=== PATIENT | male | born 1955 | race Caucasian/White ===

== ENCOUNTER 2020-05-11 12:36 | Inpatient (IN) | payer MEDICAID ==
[~2020-05-11] VITALS: Ht 177.8 cm; Wt 76.4 kg
[2020-05-11 12:37] VITALS: BP 127/69
[2020-05-11 13:01] LABS: ABSOLUTE BASOPHILS 0.1 thou/uL (0.0-0.2); ABSOLUTE NEUTROPHILS 14.8 thou/uL (1.6-8.1); BASOPHILS 0.5 %; EOSINOPHILS 0.1 %; HEMATOCRIT 31.2 % (42.0-52.0); HEMOGLOBIN 10.7 gm/dL (14.0-18.0); LYMPHOCYTES 10.8 %; MCH 39.7 pg (26.0-34.0); MCHC 34.2 g/dL (28.0-37.0); MCV 116.3 fL (80.0-100.0); MONOCYTES 10.5 %; MPV 8.8 fl. (7.2-11.1); NUCLEATED RBCS 0 /100WBC; PLATELET COUNT* 158 thou/uL (150-400); POLYS 78.1 %; RBC 2.69 mil/uL (4.50-6.00); RDW-CV 15.2 % (10.5-14.5)
[2020-05-11 13:13] LABS: INR 1.7; PROTIME 17.1 Seconds (9.20-11.50)
[2020-05-11 13:16] LABS: CALCIUM 8.8 mg/dL (8.5-10.1); CREATININE 1.5 mg/dL (0.6-1.3); POTASSIUM 4.4 mmol/L (3.5-5.1)
[2020-05-11 13:21] LABS: ALBUMIN 1.7 g/dL (3.4-5.0); TOTAL BILIRUBIN 13.5 mg/dL (<0.1-1.0); TOTAL PROTEIN 8.2 g/dL (6.4-8.2)
[2020-05-11 13:53] LABS: PLATELET ESTIMATE ADEQUATE
[2020-05-11 13:54] LABS: TARGET CELLS Occasional
[2020-05-11 13:56] LABS: MACROCYTES 1+
[2020-05-11 15:41] LABS: HEMATOCRIT 28.5 % (42.0-52.0); HEMOGLOBIN 9.8 gm/dL (14.0-18.0)
--- NOTE | 2020-05-11 17:23 | EKG ---
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: ADRI : 1955 Requested By: Ronak Henao Order Number: [id number] MD: Julius Jackson Measurements Intervals [place] Rate: 101 P: 1 ME: 127 QRS: 37 QRSD: 98 T: 40 QT: 349 QTc: 453 Interpretive Statements Sinus tachycardia Multiple premature atrial complexes Baseline wander in lead(s) I,III,aVL Compared to ECG 11/30/2014 01:11:20 PACs now present Electronically Signed On 05-11-2020 17:23:03 SPRING MACHINE OPERATOR by Julius Jackson [email or web address] <ELECTRONICALLY SIGNED> By: Julius Jackson MD, FACC 05/11/20 1723 1248 1248 Julius Jackson MD, FACC /EPI
[2020-05-11 18:39] VITALS: BP 102/48
[2020-05-11 20:07] VITALS: BP 100/63
[2020-05-12] VITALS: BP 109/76
[2020-05-12 04:40] VITALS: BP 101/58
[2020-05-12 05:02] LABS: HEMATOCRIT 25.3 % (42.0-52.0); HEMOGLOBIN 8.6 gm/dL (14.0-18.0); MCH 39.3 pg (26.0-34.0); MCHC 33.8 g/dL (28.0-37.0); MCV 116.2 fL (80.0-100.0); MPV 8.8 fl. (7.2-11.1); RBC 2.18 mil/uL (4.50-6.00); RDW-CV 14.7 % (10.5-14.5); WBC 13.5 thou/uL (4.0-11.0)
[2020-05-12 05:13] LABS: INR 1.7; PROTIME 17.7 Seconds (9.20-11.50)
[2020-05-12 05:20] LABS: ALBUMIN 1.4 g/dL (3.4-5.0); CALCIUM 8.1 mg/dL (8.5-10.1); CREATININE 1.2 mg/dL (0.6-1.3); MAGNESIUM 1.9 mg/dL (1.8-2.4); POTASSIUM 3.6 mmol/L (3.5-5.1); TOTAL BILIRUBIN 10.5 mg/dL (<0.1-1.0); TOTAL PROTEIN 6.9 g/dL (6.4-8.2)
[2020-05-12 07:13] LABS: HEPATITIS B SURFACE AG Negative (Negative)
[2020-05-12 07:40] VITALS: BP 115/77
[2020-05-12 12:37] LABS: HEMATOCRIT 26.8 % (42.0-52.0); HEMOGLOBIN 9.1 gm/dL (14.0-18.0)
[2020-05-12 13:44] VITALS: BP 108/69
[2020-05-12 17:04] VITALS: BP 116/77
[2020-05-12 19:45] LABS: HEMATOCRIT 24.5 % (42.0-52.0); HEMOGLOBIN 8.3 gm/dL (14.0-18.0)
[2020-05-12 20:45] VITALS: BP 109/73
[2020-05-13] VITALS (7 sets, daily range): BP systolic 86–106; BP diastolic 50–70
[2020-05-13 04:43] LABS: HEMATOCRIT 23.8 % (42.0-52.0); HEMOGLOBIN 8.3 gm/dL (14.0-18.0); MCHC 34.9 g/dL (28.0-37.0); MCV 114.6 fL (80.0-100.0); MPV 8.7 fl. (7.2-11.1); RBC 2.08 mil/uL (4.50-6.00); RDW-CV 14.7 % (10.5-14.5); WBC 16.1 thou/uL (4.0-11.0)
[2020-05-13 04:55] LABS: INR 1.6; PROTIME 16.9 Seconds (9.20-11.50)
[2020-05-13 05:08] LABS: ALBUMIN 1.5 g/dL (3.4-5.0); CALCIUM 8.2 mg/dL (8.5-10.1); CREATININE 1.1 mg/dL (0.6-1.3); MAGNESIUM 1.8 mg/dL (1.8-2.4); POTASSIUM 3.4 mmol/L (3.5-5.1); TOTAL BILIRUBIN 7.3 mg/dL (<0.1-1.0); TOTAL PROTEIN 6.8 g/dL (6.4-8.2)
[2020-05-13 09:22] LABS: URINE BLOOD NEGATIVE (Negative); URINE CLARITY CLEAR; URINE COLOR YELLOW; URINE GLUCOSE-RANDOM TRACE (Negative); URINE KETONES TRACE (Negative); URINE LEUKOCYTES-REFLEX NEGATIVE (Negative); URINE PROTEIN TRACE (Negative); URINE UROBILINOGEN >= 8.0 E.U./dl (0.2-1.0)
[2020-05-13 09:24] LABS: ICTOTEST (BILI CONFIRMATORY) Positive (Negative); URINE BILIRUBIN 3+ (Negative); URINE NITRITE-REFLEX POSITIVE (Negative)
[2020-05-13 09:31] LABS: SQUAMOUS 0-3 Few /LPF (0-3); URINE WBC-REFLEX 0-5 Rare /HPF (0-5)
[2020-05-13 09:32] LABS: BACTERIA-REFLEX 1-9 Few /HPF (None Seen); CRYSTALS None Seen /LPF (None Seen); HYALINE CASTS 4-10 Moderate /LPF (None Seen); MUCUS None Seen strn/LPF (None Seen); URINE RBC 0-2 Rare /HPF (0-2)
[2020-05-13 14:46] LABS: HEMATOCRIT 25.1 % (42.0-52.0); HEMOGLOBIN 8.5 gm/dL (14.0-18.0)
[2020-05-13 14:55] LABS: BF RBC <1000 /mm3; TOTAL CELL COUNT 145 /mm3
[2020-05-13 15:17] LABS: BF LYMPHOCYTES 63 %; BF POLYS 37 %; BF TISSUE 20 /100 WBC
[2020-05-13 15:19] LABS: CLARITY HAZY
[2020-05-13 15:22] LABS: SOURCE ABDOMINAL; TOTAL VOLUME 5000 ml
[2020-05-14 04:00] VITALS: BP 108/70
[2020-05-14 05:49] LABS: ALBUMIN 1.4 g/dL (3.4-5.0); CALCIUM 8.1 mg/dL (8.5-10.1); CREATININE 1.1 mg/dL (0.6-1.3); TOTAL BILIRUBIN 6.1 mg/dL (<0.1-1.0); TOTAL PROTEIN 6.8 g/dL (6.4-8.2)
[2020-05-14 07:06] LABS: HEMATOCRIT 24.4 % (42.0-52.0); HEMOGLOBIN 8.3 gm/dL (14.0-18.0); MCH 39.5 pg (26.0-34.0); MCV 116.1 fL (80.0-100.0); MPV 8.7 fl. (7.2-11.1); RBC 2.1 mil/uL (4.50-6.00); RDW-CV 15.4 % (10.5-14.5); WBC 14.6 thou/uL (4.0-11.0)
[2020-05-14 07:36] LABS: INR 1.6; PROTIME 16.6 Seconds (9.20-11.50)
[2020-05-14 08:00] VITALS: BP 104/70
[2020-05-14 12:06] LABS: BODY FLUID PROTEIN 0.9 g/dL (())
[2020-05-14 20:05] VITALS: BP 108/78
[2020-05-15] VITALS: BP 93/63
[2020-05-15 08:00] VITALS: BP 98/73
[2020-05-15 13:36] VITALS: BP 125/86
[2020-05-15 17:55] VITALS: BP 115/79
[2020-05-15 19:30] VITALS: BP 119/79
[2020-05-16 04:38] LABS: ABSOLUTE BASOPHILS 0.1 thou/uL (0.0-0.2); ABSOLUTE LYMPHOCYTES 1.8 thou/uL (0.8-5.3); ABSOLUTE MONOCYTES 1.2 thou/uL (0.0-1.2); ABSOLUTE NEUTROPHILS 10.7 thou/uL (1.6-8.1); BASOPHILS 0.4 %; EOSINOPHILS 0.1 %; HEMATOCRIT 25.5 % (42.0-52.0); HEMOGLOBIN 8.7 gm/dL (14.0-18.0); LYMPHOCYTES 12.9 %; MCH 39.4 pg (26.0-34.0); MCHC 34.1 g/dL (28.0-37.0); MCV 115.5 fL (80.0-100.0); MONOCYTES 8.6 %; MPV 8.8 fl. (7.2-11.1); NUCLEATED RBCS 0 /100WBC; PLATELET COUNT* 117 thou/uL (150-400); RBC 2.21 mil/uL (4.50-6.00); RDW-CV 15.8 % (10.5-14.5); WBC 13.7 thou/uL (4.0-11.0)
[2020-05-16 04:53] LABS: INR 1.6; PROTIME 16.1 Seconds (9.20-11.50)
[2020-05-16 05:07] LABS: ALBUMIN 1.5 g/dL (3.4-5.0); CALCIUM 8.1 mg/dL (8.5-10.1); CREATININE 1.2 mg/dL (0.6-1.3); POTASSIUM 3.8 mmol/L (3.5-5.1); TOTAL BILIRUBIN 5.7 mg/dL (<0.1-1.0); TOTAL PROTEIN 6.9 g/dL (6.4-8.2)
[2020-05-16 07:05] LABS: ANISOCYTOSIS 2+; MACROCYTES 2+; PLATELET ESTIMATE DECREASED; POIKILOCYTOSIS 1+
[2020-05-16 08:00] VITALS: BP 110/81
[2020-05-16] MEDS ORDERED: OMEPRAZOLE40 MG PO (08:52)
[2020-05-16] MEDS ORDERED: LASIX 40 MG TAB40 MG PO (08:52)
[2020-05-16] MEDS ORDERED: SPIRONOLACTONE100 M1 PO (08:52)
[2020-05-16] MEDS ORDERED: ORAPRED15 MG/5 ML PO (08:56)
[2020-05-16] MEDS ORDERED: TRAMADOL 50 MG50 MG PO (09:03)
[2020-05-16 14:00] VITALS: BP 112/60
[2020-05-16 17:33] VITALS: BP 110/81
== END 2020-05-16 18:08 | disposition home or self-care (01) | DRG 377 ==
LOC: M.ERS 12:36 → M.TBA-ER 14:16 → M.2W 20:20
PROVIDERS: Family Medicine; Radiology Diagnostic Radiology; ADMIT Internal Medicine; ATTEND Internal Medicine
PROC: 0W9G3ZZ Drainage of Peritoneal Cavity, Percutaneous Approach (ICD-10-PCS; 2020-05-13)
PROC: 06L38CZ Occlusion of Esophageal Vein with Extraluminal Device, Via Natural or Artificial Opening Endoscopic (ICD-10-PCS; 2020-05-14)
PROC: 0W9G3ZZ Drainage of Peritoneal Cavity, Percutaneous Approach (ICD-10-PCS; principal; 2020-05-16)
DX: K92.2 Gastrointestinal hemorrhage, unspecified (principal); E43 Unspecified severe protein-calorie malnutrition; I69.354 Hemiplegia and hemiparesis following cerebral infarction affecting left non-dominant side; K76.6 Portal hypertension; F10.139 Alcohol abuse with withdrawal, unspecified; K70.30 Alcoholic cirrhosis of liver without ascites; F17.210 Nicotine dependence, cigarettes, uncomplicated; R10.9 Unspecified abdominal pain; K70.10 Alcoholic hepatitis without ascites; D50.0 Iron deficiency anemia secondary to blood loss (chronic); D72.829 Elevated white blood cell count, unspecified; K31.89 Other diseases of stomach and duodenum; Z20.828 Contact with and (suspected) exposure to other viral communicable diseases; I85.10 Secondary esophageal varices without bleeding; Z68.24 Body mass index [BMI] 24.0-24.9, adult; Z79.899 Other long term (current) drug therapy

== ENCOUNTER 2020-05-24 17:24 | Inpatient (IN) | payer MEDICAID ==
[2020-05-24] VITALS (8 sets, daily range): BP systolic 90–157; BP diastolic 56–87
[~2020-05-24] VITALS: Ht 177.8 cm; Wt 75.3 kg
[~2020-05-24 17:24] MED LIST: LASIX 40 MG TAB40 MG PO; OMEPRAZOLE40 MG PO; ORAPRED15 MG/5 ML PO; SPIRONOLACTONE100 M1 PO; TRAMADOL 50 MG50 MG PO
[2020-05-24 17:55] LABS: HEMATOCRIT 26.7 % (42.0-52.0); HEMOGLOBIN 8.9 gm/dL (14.0-18.0); MCH 38.7 pg (26.0-34.0); MCHC 33.3 g/dL (28.0-37.0); MCV 116.2 fL (80.0-100.0); MPV 9.2 fl. (7.2-11.1); NUCLEATED RBCS 0 /100WBC; PLATELET COUNT* 218 thou/uL (150-400); RDW-CV 15.3 % (10.5-14.5); WBC 27.7 thou/uL (4.0-11.0)
[2020-05-24 18:03] LABS: CALCIUM 8.6 mg/dL (8.5-10.1); CREATININE 1.9 mg/dL (0.6-1.3); POTASSIUM 5.3 mmol/L (3.5-5.1)
[2020-05-24 18:06] LABS: APTT 27.3 Seconds (25.0-31.3); INR 1.7; PROTIME 17.2 Seconds (9.20-11.50)
[2020-05-24 18:15] LABS: ALBUMIN 1.7 g/dL (3.4-5.0); TOTAL BILIRUBIN 7.1 mg/dL (<0.1-1.0); TOTAL PROTEIN 6.8 g/dL (6.4-8.2)
[2020-05-24 18:30] LABS: ABSOLUTE LYMPHOCYTES 1.1 thou/uL (0.8-5.3); ABSOLUTE MONOCYTES 0.3 thou/uL (0.0-1.2); ABSOLUTE NEUTROPHILS 26.3 thou/uL (1.6-8.1); ANISOCYTOSIS 1+; MACROCYTES 2+; PLATELET ESTIMATE ADEQUATE; POIKILOCYTOSIS 1+; POLYCHROMASIA 1+
[2020-05-24 22:20] LABS: URINE BLOOD NEGATIVE (Negative); URINE CLARITY CLEAR; URINE COLOR DARK YELLOW; URINE GLUCOSE-RANDOM NEGATIVE (Negative); URINE KETONES NEGATIVE (Negative); URINE LEUKOCYTES-REFLEX NEGATIVE (Negative); URINE NITRITE-REFLEX NEGATIVE (Negative); URINE PROTEIN NEGATIVE (Negative); URINE SPECIFIC GRAVITY 1.015 (1.005-1.030)
[2020-05-24 22:21] LABS: HEMATOCRIT 22.8 % (42.0-52.0); HEMOGLOBIN 7.7 gm/dL (14.0-18.0)
[2020-05-24 22:23] LABS: URINE BILIRUBIN 1+ (Negative)
[2020-05-24 22:26] LABS: ICTOTEST (BILI CONFIRMATORY) Negative (Negative)
[2020-05-25] VITALS (121 sets, daily range): BP systolic 57–236; BP diastolic 30–196
[2020-05-25 00:49] LABS: HEMATOCRIT 24.8 % (42.0-52.0); HEMOGLOBIN 8.2 gm/dL (14.0-18.0)
[2020-05-25 05:42] LABS: HEMATOCRIT 23.4 % (42.0-52.0); HEMOGLOBIN 7.8 gm/dL (14.0-18.0); MCH 38.2 pg (26.0-34.0); MCHC 33.3 g/dL (28.0-37.0); MCV 114.8 fL (80.0-100.0); MPV 8.9 fl. (7.2-11.1); RBC 2.04 mil/uL (4.50-6.00); RDW-CV 15.2 % (10.5-14.5); WBC 22.2 thou/uL (4.0-11.0)
[2020-05-25 05:56] LABS: INR 1.6; PROTIME 16.4 Seconds (9.20-11.50)
[2020-05-25 05:59] LABS: ALBUMIN 1.6 g/dL (3.4-5.0); CALCIUM 7.8 mg/dL (8.5-10.1); CREATININE 1.5 mg/dL (0.6-1.3); MAGNESIUM 2.4 mg/dL (1.8-2.4); POTASSIUM 4.4 mmol/L (3.5-5.1); TOTAL BILIRUBIN 5.6 mg/dL (<0.1-1.0); TOTAL PROTEIN 6.1 g/dL (6.4-8.2)
--- NOTE | 2020-05-25 06:18 | NUR ---
ASSESSMENTS CHARTED. PATIENT ON UNIT AT 2145. UNABLE TO DO COMPLETE ADMISSION DUE TO THE PATIENT NOT BEING ORIENTED AND MINIMALLY RESPONSIVE. TACHYCARDIC ALL NIGHT. PATIENT HAD 2 LARGE BOWEL MOVEMENTS. BOTH BLACK AND TARRY. ATIVAN HAD TO BE ADMINISTERED ONCE WHEN THE PATIENT BECAME SUDDENLY ANXIOUS AND WAS ATTEMPTING TO CLIMB OUT OF BED. ATTEMPTS TO REORIENT THE PATIENT UNSUCCESSFUL.
[2020-05-25 08:37] LABS: BE -7.7 mmol/L (-2 to +3); PCO2 30.1 mmHg (35.0-45.0); pH 7.363 (7.340-7.450)
--- NOTE | 2020-05-25 09:40 | EKG ---
[place] [address] ELECTROCARDIOGRAM REPORT Name: JASMINE ADAMSONShey Amezcua Room: [address] IN 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
--- NOTE | 2020-05-25 09:47 | NUR ---
PATIENT'S VITALS BECAME UNSTABLE AT SHIFT CHANGE. HR SUSTAINED ABOVE 150 AND WORK OF BREATHING INCREASED. LARGE BLOODY BOWEL MOVEMENT FOLLOWED BY A SUDDEN DROP IN BLOOD PRESSURE. PATIENT ORDERED TO BE INTUBATED BY DR. VALLE. INTUBATED BY DR. CHIANG AT BEDSIDE. SPOKE WITH DR. BARBOUR ABOUT THE PATIENT'S CONDITION. ORDERS RECIEVED FOR LINE PLACEMENT AND EGD TO BE DONE AT BEDSIDE. MED ORDERS RECIEVED. CONSULTED PULMONARY FOR VENTILATOR MANAGEMENT. ORDERS RECIEVED. PATIENT CURRENTLY HAVING CENTRAL LINE AND ART LINE PLACED BY DR. SAMS. REPORT GIVEN TO BRANT NULL. PATIENT'S EX CALLED AND UPDATE WAS GIVEN OVER THE PHONE.
[2020-05-25 12:45] LABS: PCO2 36.2 mmHg (35.0-45.0)
[2020-05-25 12:48] LABS: PO2 383.8 mmHg (75.0-100.0); pH 7.202 (7.340-7.450)
[2020-05-25 13:29] LABS: NUCLEATED RBCS 0 /100WBC
[2020-05-25 13:38] LABS: HEMATOCRIT 20.9 % (42.0-52.0); INR 1.9; MCH 34.8 pg (26.0-34.0); MCHC 31.2 g/dL (28.0-37.0); MCV 111.5 fL (80.0-100.0); MPV 9.7 fl. (7.2-11.1); PROTIME 19.3 Seconds (9.20-11.50); RBC 1.88 mil/uL (4.50-6.00); RDW-CV 25.3 % (10.5-14.5)
[2020-05-25 13:39] LABS: PLATELET COUNT* 76 thou/uL (150-400)
[2020-05-25 13:41] LABS: HEMOGLOBIN 6.5 gm/dL (14.0-18.0); WBC 43.9 thou/uL (4.0-11.0)
[2020-05-25 13:56] LABS: ALBUMIN 1.1 g/dL (3.4-5.0)
[2020-05-25 14:07] LABS: CALCIUM 7.3 mg/dL (8.5-10.1); CREATININE 2.3 mg/dL (0.6-1.3); MAGNESIUM 2.4 mg/dL (1.8-2.4); TOTAL BILIRUBIN 5.1 mg/dL (<0.1-1.0)
[2020-05-25 14:17] LABS: ABSOLUTE LYMPHOCYTES 0.9 thou/uL (0.8-5.3); ABSOLUTE MONOCYTES 0.4 thou/uL (0.0-1.2); ABSOLUTE NEUTROPHILS 42.6 thou/uL (1.6-8.1); METAMYELOCYTES 1 %
[2020-05-25 14:18] LABS: PLATELET ESTIMATE DECREASED
[2020-05-25 14:19] LABS: BURR CELLS 2+; HYPOCHROMASIA 2+; MACROCYTES 1+
[2020-05-25 14:20] LABS: ANISOCYTOSIS 3+; MICROCYTES Occasional
[2020-05-25 14:22] LABS: POIKILOCYTOSIS 2+
--- NOTE | 2020-05-25 14:26 | CON ---
[address] [address] CONSULTATION Name: JESSICA ADAMSON Room: [address] IN ..#: [id number] Admission: 05/24/20 Attend Phys: Manjit Lehman MD Discharge: Date of : 59 Report #: [id number] THIS REPORT FOR: //name// cc: CHELA - No family physician/PCP FAM - No family physician/PCP ~ DATE OF SERVICE: 05/25/2020 The patient does not have a PCP. Please note at the time of this dictation, the patient was seen and physically examined by myself. REASON FOR CONSULTATION: Acute gastrointestinal bleed, or melanotic stool. HISTORY OF PRESENT ILLNESS: This is a 64-year-old male who was recently seen by us back at the first of this month for alcoholic hepatitis and cirrhosis with ascites. He underwent an EGD at that time which showed grade 3 esophageal varices, which were banded as well as portal hypertensive gastropathy. He was instructed at that time, he needed to quit drinking, which he had been drinking for many years. Upon discharge, he was sent home on Lasix and spironolactone to help with his ascites. He was on a prednisone taper for his alcoholic hepatitis as well as omeprazole at that time. It is unclear if he continues to take his medication or where he was at that time. By his labs, here in the Emergency Room, his alcohol level was 0. It is unclear if he started to re-drink once he got home. It was noted in someone talking to the sister, that she did not think that he had started drinking again. It is unclear how EMS got to his house, if he had called them or not, but he was having black stools and he was very encephalopathic and unable to provide any history. He was very tachycardic and in respiratory distress this a.m. with severe lactic acidosis that was noted. He was immediately then intubated. They dropped an NG tube on him at shift change and noted 900 mL of bright red blood out. Since that time, there has been an additional 300, so he has had a total of 1200 mL of bright red blood on his NG. He has gotten 1 unit of blood and he is also having melanotic stools through a rectal tube. The patient is currently unresponsive at this time. All history has been obtained from previous consultation, 05/08 and also ER documentation. ALLERGIES: No known drug allergies. MEDICATIONS FROM HOME: See MAR. Unclear as to if he was taking anything. PAST MEDICAL HISTORY: History of mini strokes with left-sided weakness, alcohol abuse, hepatitis C, liver cirrhosis. He has esophageal varices, portal hypertensive gastropathy [place] [address] CONSULTATION Name: SNOWJESSICA Seven Room: [address] IN ..#: [id number] Admission: 05/24/20 Attend Phys: Manjit Lehman MD Discharge: Date of : 59 Report #: [id number] PAST SURGICAL HISTORY: Negative. FAMILY HISTORY: Noncontributory. SOCIAL HISTORY: Everyday smoker and alcohol use as well. Unclear if he had quit since his last hospitalization. REVIEW OF SYSTEMS: Twelve-point review of systems is essentially negative except what is mentioned in the HPI. PHYSICAL EXAMINATION: NEUROLOGIC: The patient is sedated, unresponsive and on the ventilator. HEART: Tachycardic. LUNGS: Diminished. ABDOMEN: Rotund and soft. Positive fluid wave with positive bowel sounds in all 4 quadrants with no masses or tenderness evaluated. LABORATORY DATA: Hemoglobin on admission was 8.2. Back on 05/08, he was 10.7. He has dropped down to 7.8 and has gotten 1 unit of blood. White count is 22.2, platelets are 157. His lactic acid was 10.5. PT is 16.4, INR is 1.6. His BUN is 55 and GFR is 47. Total bilirubin is 5.6, alkaline phosphatase was 149, ALT 83, AST is 130. Ammonia on admission was 203, he is down to 120. IMAGING: CT scan shows cirrhosis, large-volume ascites, which is unchanged from his previous CT on 05/11. Abdominal x-ray showed air fluid in the stomach. IMPRESSION: 1. Gastrointestinal bleed, upper. 2. Acute anemia. 3. Melanotic stools. 4. Hepatic encephalopathy. 5. Alcoholic cirrhosis. 6. Alcoholic hepatitis. PLAN: 1. EGD today with Dr. Saxena. 2. Protonix drip. 3. Octreotide drip. 4. Further recommendations to be made after [place] [address] CONSULTATION Name: SNOWJESSICA L Room: [address] IN ..#: [id number] Admission: 05/24/20 Attend Phys: Manjit Lehman MD Discharge: Date of : 59 Report #: [id number] Thank you for allowing us to participate in this patient's care. Please do not hesitate to call with any questions in regard to this consult. <ELECTRONICALLY SIGNED> By: Tamir Saxena DO 05/25/20 1426 1055 [id number] Saxena DO /nt
[2020-05-25 14:46] LABS: APTT 33.3 Seconds (25.0-31.3)
--- NOTE | 2020-05-25 14:54 | NUR ---
ICU rounds: Transfused 2 units, 2 more units ready. Intubated at 7am. EGD today. Para today. Central, Art lines in place. Devi and fecal tubes in place. Pt recently here last week. Per previous CM note, Pt resides at home with brother. Normally independent. No DME. No hx of HH or SNF. CM will attempt to reach brother to discuss POC.
[2020-05-25 15:48] LABS: BF LYMPHOCYTES 14 %; BF MONOCYTES 2 %; BF POLYS 26 %; BF RBC 323 /mm3; BODY FLUID BANDS 14 %; SOURCE PARACENTESIS; TOTAL CELL COUNT 111 /mm3; TOTAL VOLUME 7500 ml
[2020-05-25 15:49] LABS: BF TISSUE 43 /100 WBC; CLARITY SLIGHTLY HAZY
[2020-05-25 17:27] LABS: BE -12.9 mmol/L (-2 to +3); PCO2 21.9 mmHg (35.0-45.0); pH 7.333 (7.340-7.450)
[2020-05-25 17:38] LABS: ABSOLUTE BASOPHILS 0.1 thou/uL (0.0-0.2); ABSOLUTE LYMPHOCYTES 1.7 thou/uL (0.8-5.3); ABSOLUTE MONOCYTES 2.6 thou/uL (0.0-1.2); ABSOLUTE NEUTROPHILS 35.6 thou/uL (1.6-8.1); BASOPHILS 0.2 %; HEMATOCRIT 24.5 % (42.0-52.0); LYMPHOCYTES 4.3 %; MCH 33.5 pg (26.0-34.0); MCHC 32.7 g/dL (28.0-37.0); MONOCYTES 6.4 %; MPV 8.7 fl. (7.2-11.1); NUCLEATED RBCS 0 /100WBC; PLATELET COUNT* 136 thou/uL (150-400); POLYS 89.1 %; RBC 2.39 mil/uL (4.50-6.00); RDW-CV 24.3 % (10.5-14.5)
[2020-05-25 17:39] LABS: PO2 160.4 mmHg (75.0-100.0)
[2020-05-25 17:42] LABS: MCV 102.4 fL (80.0-100.0)
[2020-05-25 17:52] LABS: ALBUMIN 2.1 g/dL (3.4-5.0); CALCIUM 7.8 mg/dL (8.5-10.1); CREATININE 2.5 mg/dL (0.6-1.3); MAGNESIUM 2.3 mg/dL (1.8-2.4); POTASSIUM 5.2 mmol/L (3.5-5.1); TOTAL BILIRUBIN 7.2 mg/dL (<0.1-1.0); TOTAL PROTEIN 5.2 g/dL (6.4-8.2)
[2020-05-25 18:03] LABS: APTT 33.1 Seconds (25.0-31.3); INR 1.7; PROTIME 17.5 Seconds (9.20-11.50)
--- NOTE | 2020-05-25 19:48 | NUR ---
THIS MEDICAL EDITOR ASSUMED CARE OF PT AT 0700 PT WAS INTUBATED AT 0700 WAS ACTIVELY BLEEDING THROUGH BOWEL MOVEMENT AND THROUGH OG ONCE OG WAS PLACED PT HAD OUT [address] Elizabeth FROM GI WAS CONSULTED EGD DONE AT BEDSIDE CLIPPED TWO VARICES CENTRAL LINE AND ARTLINE PLACED AT BEDSIDE STARTED PRESSERS LEVO AND VASO TRANSFUSED 5 UNITS PRBC, TWO UNITS PLASMA AND 1 UNIT CRYO PARACENTESIS DONE AT BED SIDE REMOVED 7500ML/HR SENT FOR TESTING I UNIT OF BLOOD WAS TRANSFUSED DURING EGD PROCEDURE BY CORK MIXER ALL CONSENT OBTAINED AND IN CHART EX HEIDI NOTIFIED AND UPDATED
[2020-05-25 20:11] LABS: HEMATOCRIT 21.3 % (42.0-52.0); HEMOGLOBIN 7.2 gm/dL (14.0-18.0)
[2020-05-26] VITALS (46 sets, daily range): BP systolic 116–151; BP diastolic 49–81
--- NOTE | 2020-05-26 01:45 | NUR ---
ASSUMED CARE OF PT @ 1900; RECEIVED REPORT FROM [place]; REASSESSMENT COMPLETED SEE CHARTING; MONITOR TRACING ST; PT SEDATED ON THE VENT, NO APPARENT PAIN; REPEAT HGB 7.2, DR STRICKLAND CONTACTED THROUGH U CALL MD, RESPONSE STATING WILL FOLLOW UP NO FURTHER ORDERS AT THIS TIME.
[2020-05-26 05:03] LABS: EOSINOPHILS 0.1 %; LYMPHOCYTES 6.3 %; MCHC 34.3 g/dL (28.0-37.0); MCV 99.3 fL (80.0-100.0); MONOCYTES 5.2 %; MPV 8.7 fl. (7.2-11.1); NUCLEATED RBCS 0 /100WBC; PLATELET COUNT* 67 thou/uL (150-400); POLYS 88.4 %; RBC 1.96 mil/uL (4.50-6.00); RDW-CV 24.5 % (10.5-14.5)
[2020-05-26 05:17] LABS: INR 2.1; PROTIME 21.7 Seconds (9.20-11.50)
[2020-05-26 05:22] LABS: ALBUMIN 2.7 g/dL (3.4-5.0); CALCIUM 7.5 mg/dL (8.5-10.1); CREATININE 2.6 mg/dL (0.6-1.3); MAGNESIUM 2.1 mg/dL (1.8-2.4); TOTAL BILIRUBIN 7.3 mg/dL (<0.1-1.0); TOTAL PROTEIN 5.2 g/dL (6.4-8.2)
[2020-05-26 05:24] LABS: POTASSIUM 3.7 mmol/L (3.5-5.1)
[2020-05-26 05:53] LABS: PHOSPHORUS* 5.6 mg/dL (2.5-4.9)
[2020-05-26 06:25] LABS: ABSOLUTE LYMPHOCYTES 1.2 thou/uL (0.8-5.3); ABSOLUTE NEUTROPHILS 17.5 thou/uL (1.6-8.1); WBC 19.8 thou/uL (4.0-11.0)
[2020-05-26 06:26] LABS: HEMOGLOBIN 6.7 gm/dL (14.0-18.0)
[2020-05-26 06:27] LABS: HEMATOCRIT 19.5 % (42.0-52.0)
--- NOTE | 2020-05-26 07:05 | NUR ---
PT PROGRESSING TOWARDS GOALS; TITRATED LEVOPHED DOWN, TITRATED VASOPRESSIN OFF; DECREASED OXYGEN DEMAND MET, PT FIO2 TITRATED TO 40%; PT MONITOR NOW TRACING SR; PT REPOSITION, ORAL CARE AMD VENT EVERY 2HOURS; AM LABS COMPLETED; ORDERS RECEIVED FROM DR SAUCEDO TO TRANSFUSE 1 UNIT OF RBC AND 2 UNITS OF FRESH FROZEN PLASMA; REPORT GIVEN TO SANDEEP; WILL CONTINUE TO MONITOR.
--- NOTE | 2020-05-26 07:34 | NUR ---
DR TORI COOPER OF [facility], [place] TO TRANSFUSE 1 UNIT OF PRBC, AND 2 UNITS OF FFP, NO FURTHER ORDERS RECEIVED.
[2020-05-26 08:26] LABS: BE 3.3 mmol/L (-2 to +3); PCO2 30.2 mmHg (35.0-45.0); pH 7.549 (7.340-7.450)
--- NOTE | 2020-05-26 12:25 | NUR ---
PT REMAINS INTUBATED PER ORDERED SETTINGS.SEDATED WITH VERSED AND FENTANYL.ON LEVO FOR BP SUPPORT-ABLE TO TITRATE DOWN. 1 UNIT FFP GIVEN-NO REACTIONS NOTED.1 UNIT BLOOD STARTED.EGD COMPLETED AT BEDSIDE.REPORT GIVEN TO BRANT RAMIRES.
--- NOTE | 2020-05-26 14:36 | NUR ---
ICU rounds: Remains on vent, sedated. Tube feeds. GI following.
[2020-05-26 15:08] LABS: BODY FLUID PROTEIN 0.5 g/dL (())
[2020-05-26 16:30] LABS: HEMATOCRIT 21.1 % (42.0-52.0); HEMOGLOBIN 7.2 gm/dL (14.0-18.0); MCH 33.6 pg (26.0-34.0); MCHC 34.2 g/dL (28.0-37.0); MCV 98.1 fL (80.0-100.0); MPV 8.3 fl. (7.2-11.1); NUCLEATED RBCS 0 /100WBC; PLATELET COUNT* 63 thou/uL (150-400); RBC 2.15 mil/uL (4.50-6.00); RDW-CV 22.4 % (10.5-14.5); WBC 17.4 thou/uL (4.0-11.0)
[2020-05-26 16:41] LABS: APTT 36.2 Seconds (25.0-31.3); INR 1.9; PROTIME 19.6 Seconds (9.20-11.50)
[2020-05-26 16:58] LABS: ABSOLUTE MONOCYTES 0.2 thou/uL (0.0-1.2); ABSOLUTE NEUTROPHILS 16.2 thou/uL (1.6-8.1); ALBUMIN 2.9 g/dL (3.4-5.0); ANISOCYTOSIS 2+; CALCIUM 7.6 mg/dL (8.5-10.1); CREATININE 2.3 mg/dL (0.6-1.3); MAGNESIUM 2.2 mg/dL (1.8-2.4); PLATELET ESTIMATE DECREASED; POTASSIUM 3.6 mmol/L (3.5-5.1); TOTAL BILIRUBIN 6.5 mg/dL (<0.1-1.0); TOTAL PROTEIN 5.4 g/dL (6.4-8.2)
[2020-05-26 17:32] LABS: BE 1.8 mmol/L (-2 to +3); PCO2 33.5 mmHg (35.0-45.0); pH 7.492 (7.340-7.450)
[2020-05-26 17:36] LABS: PO2 155.5 mmHg (75.0-100.0)
--- NOTE | 2020-05-26 17:40 | NUR ---
PT HAD BEDSIDE EGD TO TODAY AND OG TUBE PLACED. START TUBE FEEDING THIS EVENING AND CONTIUNUE FREQUENT TURNS AND ORAL CARE. BLOOD TRANSFUSED THIS AM. WILL CONTNINUE TO ASSESS.
[2020-05-27] VITALS (51 sets, daily range): BP systolic 92–124; BP diastolic 49–116
[2020-05-27 04:15] LABS: ABSOLUTE LYMPHOCYTES 0.8 thou/uL (0.8-5.3); ABSOLUTE MONOCYTES 0.5 thou/uL (0.0-1.2); ABSOLUTE NEUTROPHILS 11.4 thou/uL (1.6-8.1); BASOPHILS 0.1 %; HEMATOCRIT 20.4 % (42.0-52.0); LYMPHOCYTES 6.4 %; MCH 33.7 pg (26.0-34.0); MCHC 34.3 g/dL (28.0-37.0); MCV 98.1 fL (80.0-100.0); MONOCYTES 3.8 %; MPV 8.8 fl. (7.2-11.1); NUCLEATED RBCS 0 /100WBC; PLATELET COUNT* 53 thou/uL (150-400); POLYS 89.7 %; RBC 2.08 mil/uL (4.50-6.00); WBC 12.8 thou/uL (4.0-11.0)
[2020-05-27 04:45] LABS: PROTIME 20.3 Seconds (9.20-11.50)
[2020-05-27 05:01] LABS: ALBUMIN 2.6 g/dL (3.4-5.0); CREATININE 2.1 mg/dL (0.6-1.3); MAGNESIUM 2.4 mg/dL (1.8-2.4); POTASSIUM 3.3 mmol/L (3.5-5.1); TOTAL BILIRUBIN 5.9 mg/dL (<0.1-1.0); TOTAL PROTEIN 5.2 g/dL (6.4-8.2)
--- NOTE | 2020-05-27 06:12 | NUR ---
LEVOPHED TITRATED OFF. FIO2 DOWN TO 35%. LIQUID STOOL PER FECAL TUBE, ABOUT 20-30ML. PATIENT NOT TOLERATING TUBE FEEDS, RESIDUALS 270-300CC. HELD FOR 4 HOURS THEN RESTARTED AT 20ML/HR WITHOUT GIVING THE RESIDUALS BACK. OTHERWISE UNEVENTFUL NIGHT. AFEBRILE, UOP 900CC. Q2 TURNS FOR SKIN INTEGRITY.
[2020-05-27 08:10] LABS: BE 2.2 mmol/L (-2 to +3); PCO2 42.8 mmHg (35.0-45.0); PO2 97.7 mmHg (75.0-100.0); pH 7.417 (7.340-7.450)
[2020-05-27 11:03] LABS: HEMATOCRIT 20.2 % (42.0-52.0)
--- NOTE | 2020-05-27 15:20 | NUR ---
ICU rounds: Weaning trial planned for today. Off levo. Hbg at 7
[2020-05-27 15:30] LABS: ABSOLUTE LYMPHOCYTES 0.7 thou/uL (0.8-5.3); ABSOLUTE MONOCYTES 0.3 thou/uL (0.0-1.2); ABSOLUTE NEUTROPHILS 8.8 thou/uL (1.6-8.1); BASOPHILS 0.3 %; HEMATOCRIT 20.6 % (42.0-52.0); HEMOGLOBIN 7.1 gm/dL (14.0-18.0); LYMPHOCYTES 7.1 %; MCH 34.3 pg (26.0-34.0); MCHC 34.7 g/dL (28.0-37.0); MCV 98.8 fL (80.0-100.0); MONOCYTES 3.5 %; MPV 8.4 fl. (7.2-11.1); NUCLEATED RBCS 0 /100WBC; POLYS 89.1 %; RBC 2.08 mil/uL (4.50-6.00); RDW-CV 22.9 % (10.5-14.5); WBC 9.8 thou/uL (4.0-11.0)
[2020-05-27 15:35] LABS: PLATELET COUNT* 46 thou/uL (150-400)
[2020-05-27 15:40] LABS: ALBUMIN 2.4 g/dL (3.4-5.0); CALCIUM 7.8 mg/dL (8.5-10.1); CREATININE 1.8 mg/dL (0.6-1.3); MAGNESIUM 2.3 mg/dL (1.8-2.4); POTASSIUM 3.7 mmol/L (3.5-5.1); TOTAL BILIRUBIN 5.3 mg/dL (<0.1-1.0); TOTAL PROTEIN 4.9 g/dL (6.4-8.2)
--- NOTE | 2020-05-27 16:27 | NUR ---
REPORT GIVEN TO BRANT CAPPS AT [facility]. PT AND EDUCATED. PT LEFT THE UNIT AT 1615. OBTURATOR SENT WITH EMT PERSONNEL. PT BELONGINGS (CLOTHES, CELLPHONE AND MANAGER FLOAT) SENT HOME WITH , SENIA.
--- NOTE | 2020-05-27 18:30 | NUR ---
ALL SEDATION DRIP TURNED OFF THIS AM. WEANING TRIAL INITIATED BUT PT NOT AWAKE ENOUGH TO FOLLOW COMMANDS, MOVES ALL THE EXTREMITIES BUT UNPURPOSEFUL. TRIAL TOMORROW. VSS. BP MAINTAINED WITHOUT PRESSORS. TUBE FEEDS RESIDUAL >200 MLS Q4H, RESTARTED FEEDING AT 20 MLS/HR AT 1800. SONSONALI IN THE UNIT FOR FEW HOURS TODAY. POTASSIUM REPLACED PER PROTOCOL. Q2 TURNS AND ORAL CARE PROVIDED.
[2020-05-28] VITALS (51 sets, daily range): BP systolic 15–127; BP diastolic 55–76
[2020-05-28 05:23] LABS: HEMATOCRIT 22.7 % (42.0-52.0); HEMOGLOBIN 7.7 gm/dL (14.0-18.0); MCHC 33.8 g/dL (28.0-37.0); MCV 100.5 fL (80.0-100.0); MPV 8.6 fl. (7.2-11.1); RBC 2.26 mil/uL (4.50-6.00); WBC 7.9 thou/uL (4.0-11.0)
[2020-05-28 05:53] LABS: INR 1.8; PROTIME 18.8 Seconds (9.20-11.50)
[2020-05-28 05:57] LABS: ALBUMIN 2.4 g/dL (3.4-5.0); CALCIUM 8.2 mg/dL (8.5-10.1); CREATININE 1.7 mg/dL (0.6-1.3); POTASSIUM 3.7 mmol/L (3.5-5.1); TOTAL BILIRUBIN 5.7 mg/dL (<0.1-1.0); TOTAL PROTEIN 5.2 g/dL (6.4-8.2)
[2020-05-28 15:02] LABS: BE 0 mmol/L (-2 to +3); PCO2 41.5 mmHg (35.0-45.0); PO2 106.4 mmHg (75.0-100.0); pH 7.396 (7.340-7.450)
--- NOTE | 2020-05-28 17:50 | NUR ---
WEANING TRIAL DONE THIS AFTERNOON, PASSED THE TRIAL BUT NOT AWAKE ENOUGH TO FOLLOW COMMANDS. ONLY OPENING EYES AT TIMES. NO PLANS FOR EXTUBATION TODAY. PROTONIX DRIP CONTD. FECAL TUBE DC'd. VSS. TUBE FEEDINGS CONTD AT LOW RATE BECAUSE OF HIGH RESIDAULS. Q2 TURNS AND ORAL CARE GIVEN.
[2020-05-29] VITALS (17 sets, daily range): BP systolic 73–165; BP diastolic 49–80
--- NOTE | 2020-05-29 05:52 | NUR ---
PATIENT ON 0.8MCG/KG/HR THROUGH THE NIGHT. RESTLESS INTERMITTENTLY, BUT COMFORTABLE FOR THE MOST PART. OPENS EYES, DOES NOT FOLLOW COMMANDS. DID TOLERATE TUBE FEED, ON HOLD SINCE AROUND 0400 FOR POSSIBLE TRIAL. BMX1, MODERATE, LOOSE AND DARK RED/MAROON. Q2 TURNS FOR SKIN INTEGRITY. WILL CONTINUE MONITORING FOR THE REMAINDER OF SHIFT.
[2020-05-29 08:35] LABS: CALCIUM 8.1 mg/dL (8.5-10.1); CREATININE 1.7 mg/dL (0.6-1.3); POTASSIUM 3.2 mmol/L (3.5-5.1)
[2020-05-29 10:31] LABS: HEMATOCRIT 24.7 % (42.0-52.0); HEMOGLOBIN 8.2 gm/dL (14.0-18.0); MCH 33.8 pg (26.0-34.0); MCHC 33.1 g/dL (28.0-37.0); MPV 9.2 fl. (7.2-11.1); RBC 2.42 mil/uL (4.50-6.00); RDW-CV 22.8 % (10.5-14.5); WBC 8.3 thou/uL (4.0-11.0)
[2020-05-29 12:40] LABS: BE 0.9 mmol/L (-2 to +3); PCO2 39.4 mmHg (35.0-45.0); pH 7.426 (7.340-7.450)
[2020-05-29 12:41] LABS: PO2 133.8 mmHg (75.0-100.0)
--- NOTE | 2020-05-29 14:00 | NUR ---
PT PASSED WEANING TRIAL THIS AM, PT EXTUBATED HIMSELF WHILE WAITING ON THE CALL BACK FROM PULMONOLOGY. O2 SATS MAINTAINED AT NC 2L/MIN. VSS.
--- NOTE | 2020-05-29 23:05 | NUR ---
PATIENT PULLED OU ART LINE. PRESSURE APPLIED PER PROTOCOL AND THEN THE SITE WAS DRESSED
[2020-05-30] VITALS (20 sets, daily range): BP systolic 79–136; BP diastolic 60–87
--- NOTE | 2020-05-30 06:28 | NUR ---
ASSUMED PATIENT CARE AT 1900. PATIENT AGITATED AND HAS SOME VISUAL HALLUCINATIONS, STATING THAT THERE ARE "ANTS CRAWLING UP THE WALL" NO COMPLAINTS OF PAIN OR DISCOMFORT NOTED. PARACENTISIS SITE STILL WEEPING. PULIDO PATENT. FECAL TUBE PLACED FOR BOWEL MANAGEMENT. ART LINE D/C'D BY PATIENT. RN ASSESSMENTS COMPLTED DOCUMENTED.
[2020-05-30 09:52] LABS: HEMATOCRIT 27.1 % (42.0-52.0); HEMOGLOBIN 9.1 gm/dL (14.0-18.0); MCH 34.1 pg (26.0-34.0); MCHC 33.5 g/dL (28.0-37.0); MCV 101.7 fL (80.0-100.0); MPV 9.2 fl. (7.2-11.1); NUCLEATED RBCS 0 /100WBC; PLATELET COUNT* 57 thou/uL (150-400); RBC 2.67 mil/uL (4.50-6.00); RDW-CV 22.8 % (10.5-14.5); WBC 16.7 thou/uL (4.0-11.0)
[2020-05-30 10:05] LABS: ALBUMIN 2.2 g/dL (3.4-5.0); CALCIUM 8.8 mg/dL (8.5-10.1); CREATININE 1.5 mg/dL (0.6-1.3); POTASSIUM 3.8 mmol/L (3.5-5.1); TOTAL BILIRUBIN 8.5 mg/dL (<0.1-1.0); TOTAL PROTEIN 5.2 g/dL (6.4-8.2)
[2020-05-30 10:06] LABS: INR 1.8; PROTIME 18.8 Seconds (9.20-11.50)
[2020-05-30 10:22] LABS: ABSOLUTE LYMPHOCYTES 0.3 thou/uL (0.8-5.3); ABSOLUTE MONOCYTES 0.7 thou/uL (0.0-1.2); ABSOLUTE NEUTROPHILS 15.7 thou/uL (1.6-8.1); ANISOCYTOSIS 1+; PLATELET ESTIMATE DECREASED
[2020-05-30 10:23] LABS: HYPOCHROMASIA 1+; OVALOCYTES Occasional; POIKILOCYTOSIS 1+
--- NOTE | 2020-05-30 14:06 | NUR ---
WOUND NURSE: PATIENT SEEN TO ADDRESS LESION ON POSTERIOR THORACIC SPINE. PRESENTS A SMALL CIRCIFORM LESION CONTAINING COPIOUS AMOUNT OF SEBUM. EXPRESSED APPROX 30 TO 45 CCS OF OLD GRAYISH OILY MATERIAL FROM THE LESION. CLEANSED WITH WOUND CLEANSER AND GAUZE AND NORMAL SALINE.
--- NOTE | 2020-05-30 14:30 | NUR ---
PT TRANSFERRED TO ROOM 230. WILL CONTINUE CARE.
--- NOTE | 2020-05-30 15:09 | NUR ---
ICU rounds: Pt tele status, moving to 230
--- NOTE | 2020-05-30 16:51 | NUR ---
PT PASSED BEDSIDE SWALLOW EVALUATION AND WOUND CARE DRESSED CYST ON RIGHT BACK SHOULDER TODAY. WILL CONTINUE TO ASSESS.
--- NOTE | 2020-05-30 20:00 | NUR ---
RECEIVED REPORT AND ASSUMED CARE OF PT, ASSESSMENT COMPLETED. PT VERY JAUNDICE IN COLOR. ABD LG, DISTENDED WITH ASCITIES, PUNCTURE AREA WEEPING CL YELLOW FLUID. DRSG NOTED TO LT SHOULDER AREA. FECAL SYSTEM IN PLACE WITH LG AMT OF LIQ STOOL. PT DRINKING WATER WITHOUT DIFFICULTY. TELEMETRY ON SHOWING SR. WILL CONT TO MONITOR AND ASSIST NEEDED.
[2020-05-31] VITALS: BP 125/84
[2020-05-31 04:00] VITALS: BP 115/79
[2020-05-31 05:25] LABS: ABSOLUTE LYMPHOCYTES 0.7 thou/uL (0.8-5.3); ABSOLUTE MONOCYTES 0.7 thou/uL (0.0-1.2); ABSOLUTE NEUTROPHILS 11.1 thou/uL (1.6-8.1); BASOPHILS 0.3 %; HEMATOCRIT 24.6 % (42.0-52.0); HEMOGLOBIN 8.2 gm/dL (14.0-18.0); LYMPHOCYTES 5.8 %; MCH 33.6 pg (26.0-34.0); MCHC 33.3 g/dL (28.0-37.0); MCV 100.9 fL (80.0-100.0); MONOCYTES 5.3 %; MPV 9.3 fl. (7.2-11.1); NUCLEATED RBCS 0 /100WBC; POLYS 88.6 %; RBC 2.43 mil/uL (4.50-6.00); RDW-CV 23.2 % (10.5-14.5); WBC 12.5 thou/uL (4.0-11.0)
[2020-05-31 05:34] LABS: PLATELET COUNT* 43 thou/uL (150-400)
[2020-05-31 05:36] LABS: ALBUMIN 2.5 g/dL (3.4-5.0); CALCIUM 8.9 mg/dL (8.5-10.1); CREATININE 1.4 mg/dL (0.6-1.3); POTASSIUM 3.3 mmol/L (3.5-5.1); TOTAL PROTEIN 5.3 g/dL (6.4-8.2)
--- NOTE | 2020-05-31 05:42 | NUR ---
AWAKE MOST OF NIGHT. REPOSITIONED Q 2HR FROM SIDE TO SIDE BUT PT RETURNS TO BACK. FECAL TUBE HAS CAME OUT AND REINSERTED, CONT TO LEAK AROUND IT. ABD WEEPING ASCITES FLUID. PT ASSESSMENT UNCHANGED. TELEMETRY CONT TO SHOW ST. HS GOALS OF REST AND SAFETY ONLY PARTICALLY ACHIEVED. HOURLY ROUNDING OBSERVED.
[2020-05-31 09:09] VITALS: BP 134/68
[2020-05-31 11:20] VITALS: BP 122/84
[2020-05-31 13:32] LABS: CALCIUM 9.5 mg/dL (8.5-10.1); CREATININE 1.5 mg/dL (0.6-1.3)
[2020-05-31 16:45] VITALS: BP 150/91
--- NOTE | 2020-05-31 19:37 | NUR ---
CARES PROVIDED FROM 0700 TO 1900. PT REMAINS ALERT TO PERSON, PLACE AND FAMILY. FOLLOWS DIRECTIONS. PT REMAINS HEAVY ASSISTANCE WITH CARES. APPETITE IS FAIR. K LEVEL THIS AFTERNOON 3.0. REPLACEMENT PER PROTOCOL. UTILIZED IV ROUTE TO ADMINISTER. AT TIME OF THIS NOTE PT IS DUE FOR 2 MORE BAGS OF K. RECTAL TUBE REMAINS IN PLACE. PT PASSING LARGE AMOUNT OF LIQUID STOOL. AT TIME OF THIS NOTE PT IS RESTING QUIETLY
[2020-05-31 20:00] VITALS: BP 125/78
[2020-06-01] VITALS: BP 135/83
[2020-06-01 03:57] VITALS: BP 128/80
--- NOTE | 2020-06-01 05:07 | NUR ---
ASSUMED PT CARE AT APPROX 1930. PT IS AWAKE, ORIENTED TO SELF AND PLACE. PT IS NOT IN DISTRESS. PT IS TRACING SR/ST ON THE SHELL TRIM OPERATOR. PT DENIES PAIN. FECAL TUBE IS INTACT AND IS DRAINING- LIQUID LIGHT BROWN BM. PULIDO CATHETER IN PLACE AND IS DRAINING WELL. POSITION CHANGES DONE, AND PT IS KEPT CLEAN AND DRY FECAL TUBE IS LEAKING A LITTLE. NO ACUTE CHANGES THIS SHIFT. CALL LIGHT WITHIN REACH. HOIURLY ROUNDING DONE FOR PT SAFETY. HIGH FALL PRECAUTIONS IN PLACE.
[2020-06-01 06:05] LABS: HEMATOCRIT 25.7 % (42.0-52.0); HEMOGLOBIN 8.6 gm/dL (14.0-18.0); MCHC 33.6 g/dL (28.0-37.0); MCV 101.3 fL (80.0-100.0); MPV 9.2 fl. (7.2-11.1); RBC 2.54 mil/uL (4.50-6.00); RDW-CV 22.2 % (10.5-14.5); WBC 12.5 thou/uL (4.0-11.0)
[2020-06-01 06:18] LABS: INR 1.9; PROTIME 19.5 Seconds (9.20-11.50)
[2020-06-01 06:21] LABS: ALBUMIN 2.1 g/dL (3.4-5.0); CALCIUM 9.3 mg/dL (8.5-10.1); CREATININE 1.2 mg/dL (0.6-1.3); POTASSIUM 3.2 mmol/L (3.5-5.1); TOTAL BILIRUBIN 8.3 mg/dL (<0.1-1.0)
[2020-06-01 07:30] VITALS: BP 131/81
[2020-06-01 11:00] VITALS: BP 113/75
--- NOTE | 2020-06-01 13:53 | NUR ---
CM INFORMED DURING PRIME ROUNDING OF THE PLAN OF CARE FOR THE PT. PLAN FOR PT TO TO HAVE PT/OT EVALS. ARU CONSULT PENDING A PT HAS MEDICAID ONLY INSURANCE, SO PT ONLY ABLE TO HAVE HH WITH NURSING ONLY. CM WILL REMAIN AVAILABLE TO ASSIST AND FOLLOW NEEDED.
[2020-06-01 16:30] VITALS: BP 113/78
--- NOTE | 2020-06-01 17:40 | NUR ---
A&O X 1 (PERSON).LUNGS CEAR, HEART TONES REGULAR, +BS X 4 QUADS. ABD SOFT BUT ROUND AND DISTENDED. PT IS JAUNDICE. PULIDO CATH DC'D, BRIEF PUT ON PT IS INCONTINENT BOWEL AND BLADDER. CENTRAL LINE DC'D AND PRESSURE DRESSING APPLIED. RECTAL TUBE DC'D. NEW ORDER FOR ACTIVITY TOLERATED. PHYSICAL THERAPY CAME AND SAT PT ON SIDE OF BED AND HE TOLERATED WELL. ORDER PUT IN FOR REHAB CONSULT. REPLACED POTASSIUM TODAY AND WILL HAVE LAB DRAW K+ LEVEL AT 1930. COCCYX PRESSURE SORE NOTED MEASURES 1.5CM X 1 CM, PICTURE TAKEN AND PUT ON CHART. COCCYX AREA IS PINK, BOARDER FOAM DRESSING APPLIED. BRUISING NOTED TO ARMS AND CHEST. A.B.D. PLACED ON PARACENTESIS SITE WHICH IS STILL WEEPING. EYE'S VERY JAUNDICE. ALL IV FLUIDS DC'D. CALL LIGHT WITHIN REACH. WILL CONTINUE TO MONITOR.
--- NOTE | 2020-06-01 18:32 | NUR ---
LEFT BACK CYST REDRESSED. MEASURES 1.5CM X 1 CM TUNNELS. 1200 IS .5CM, 1500 IS 4 CM, 1800 IS 4CM, 2100 IS 2 CM. PICTURE TAKEN AND PUT ON CHART. CLEANSED WITH WOUND CLEANSER. VERY FOWL SMELLING SECRETIONS NOTED.
[2020-06-01 20:00] VITALS: BP 103/69
[2020-06-02] VITALS: BP 102/71
[2020-06-02 04:00] VITALS: BP 98/68
[2020-06-02 04:27] LABS: HEMATOCRIT 29.7 % (42.0-52.0); HEMOGLOBIN 9.9 gm/dL (14.0-18.0); MCHC 33.4 g/dL (28.0-37.0); MCV 101.8 fL (80.0-100.0); MPV 9.9 fl. (7.2-11.1); RBC 2.92 mil/uL (4.50-6.00); RDW-CV 22.3 % (10.5-14.5)
[2020-06-02 04:45] LABS: INR 1.7; PROTIME 17.7 Seconds (9.20-11.50)
[2020-06-02 04:58] LABS: ALBUMIN 2.2 g/dL (3.4-5.0); CALCIUM 9.8 mg/dL (8.5-10.1); CREATININE 1.5 mg/dL (0.6-1.3); MAGNESIUM 2.1 mg/dL (1.8-2.4); POTASSIUM 3.7 mmol/L (3.5-5.1); TOTAL BILIRUBIN 10.2 mg/dL (<0.1-1.0)
[2020-06-02 04:59] LABS: TOTAL PROTEIN 5.4 g/dL (6.4-8.2)
--- NOTE | 2020-06-02 06:13 | NUR ---
ASSUMED PT CARE AT APPROX 1930. PT IS AWAKE, ORIENTED TO SELF AND PLACE AND YEAR. PT IS FORGETFUL AND HAS PERIODS OF CONFUSION. PT IS NOT IN DISTRESS. PT IS INCONTINENT OF BOWEL AND BLADDER. PT IS REPOSITIONED AND IS KEPT DRY AND CLEAN. NO ACUTE CHANGES THIS SHIFT. CALL LIGHT WITHIN REACH. HOURLY ROUNDING DONE FOR PT SAFETY. HIGH FALL PRECAUTIONS IN PLACE.
[2020-06-02 08:08] VITALS: BP 97/69
--- NOTE | 2020-06-02 10:21 | NUR ---
ASSUMED CARE OF PT THIS AM AROUND 07- CASTING HOUSE WORKER IN PLACE ORDERED, TRACING SR- UPON ASSESSMENT PT NOTED TO BE RESTING IN BED- PT A&O X2 WITH NOTED FORGETFULLNESS/CONFUSSION- PT NOTED TO BE IMPULSIVE AT TIMES, TRYING TO CLIMB OUT OF BED- INCONT OF B/B- Q2 HOUR TURNS IN PLACE INDICATED- LCTA/DIMINISHED IN BASES- VSS, O2 SAT 93% ON RA- ABD FIRM/ROUND/DISTENDED, BS ACTIVE- ABD ASCITES NOTED- JAUNDICE NOTED-PT NOTED THIS AM- DRAINGE NOTED FROM RIGHT PARACENTHESIS- NO IV ACCESS NOTED, PROVIDER AWARE-COCCYX WOUND NOTED WITH DRESSING C/D/I- SET UP ASSISTANCE REQUIRED WITH MEALS, FAIR PO INTAKE NOTED THIS AM- CALL LIGHT AND PERSONAL BELONGINGS WITH IN REACH- BED ALARM IN PLACE AND WORKING FOR PT SAFETY- HOURLY ROUNDS IN PLACE R/T SAFETY/NEEDS- ALL NEEDS MET AT THIS TIME-WCTM
[2020-06-02 20:00] VITALS: BP 113/78
[2020-06-03] VITALS: BP 118/68
--- NOTE | 2020-06-03 07:12 | NUR ---
ASSUMED PT CARE AT APPROX 1930. PT IS AWAKE, ORIENTED TO SELF, MOSTLY CONFUSED. PT IS IMPULSIVE AND IS WANTING TO GET OUT OF BED AND GO HOME TO HIS DOG. PT IS NOT IN DISTRESS, NO DESATURATIONS NOTED. PT IS INCONTINENT OF BOWEL AND BLADDER, MULTIPLE BED CHANGES DONE THROUGHOUT THIS SHIFT. PT IS REPOSITIONED AND IS KEPT CLEAN AND DRY. BENADRYL GIVEN TO HELP HIM CALM DOWN. NO OACUTE CHANGES THIS SHIFT. CALL LIGHT WITHIN REACH. HIGH FALL PRECAUTIONS IN PLACE. PT IS CLOSELY MONITORED.
[2020-06-03 08:00] VITALS: BP 103/74; BP 107/74
--- NOTE | 2020-06-03 08:00 | NUR ---
AM ASSESSMENT COMPLETE, DEFER TO COMPUTER CHARTING. ALERT ORIENTED TO SELF ONLY, SITUATION AT TIMES. JUANDICE IN COLOR - WEAKNESS NOTED. ABD DISTENDED WITH POSITIVE BOWEL SOUNDS - INCONTINENT OF URINE, CLAIRE CARE GIVEN. HOB ELEVATED. BED ALARM ON FOR SAFETY, CALL LIGHT WITHIN REACH. WILL MONITOR.
[2020-06-03 11:30] VITALS: BP 108/76
--- NOTE | 2020-06-03 15:30 | NUR ---
PATIENT HAVING LARGE LIQUID BLOODY STOOL WITH BLOOD CLOTS - CALL PLACED TO DR VALLE NOTIFIED. CALL PLACED TO GI - NURSE HAVING DIFFICULTY REACHING GI THRU PHONE SYSTEM - CALL PLACED TO RECONCILIATION SPECIALIST TO NOTIFY, RECONCILIATION SPECIALIST STATING WILL GET A HOLD OF GI. PATIENT REMAINS CONFUSED, NO COMPLAINTS OF PAIN OR NAUSEA AT THIS TIME. SISTER IN EARLIER TO VISIT. BED ALARM REMAINS ON FOR SAFETY. WILL RESUME TELE PER ORDERS.
[2020-06-03 16:00] VITALS: BP 98/72
--- NOTE | 2020-06-03 16:10 | NUR ---
GI ANSWERING SERVICE RETURNED CALL GIVEN UPDATE ON PATIENT - SERVICE STATES WILL NOTIFY VP TREASURER TRACKING SR.
--- NOTE | 2020-06-03 17:00 | NUR ---
GI REUTRNING CALL, NWE ORDERS RECEIVED.
[2020-06-03 17:34] LABS: HEMATOCRIT 34.2 % (42.0-52.0); HEMOGLOBIN 11.2 gm/dL (14.0-18.0)
--- NOTE | 2020-06-03 18:40 | NUR ---
PATIENT HAD ANOTHER SM LIQUID BLOODY STOOL - BRIGHT RED. TOLERATING CLEAR LIQUID DIET WITH NO COMPALINTS OF NAUSEA. IV X 1 PLACED 22 GUAGE PATIENT DIFFICULT STICK - ATTEMPTED BY THIS RN AND ANOTHER RN ONLY ABLE TO GET 1 IV AT THIS TIME, WILL ATTEMPT TO FIND ANOTHER RN TO TRY FOR ADDITIONAL SITE. IV FLUIDS INFUSING PER ORDERS. DIRECTOR BUSINESS INTEGRATION TRACKING SR. CALL PLACED TO NOTCHER ALBA GUO NOTIFY NEEDING ANOTHER IV SITE. PATIENT REMAINS CONFUSED, ANXIOUS AT TIME - COOPERATIVE MOST OF SHIFT BUT DID HAVE MOMENTS OF AGITATION AT TIMES. INCONTINENT MULTIPLE TIMES DURING SHIFT - CLAIRE CARE GIVEN. BED ALARM ON FOR SAFETY. WILL CONTINUE WITH PLAN OF CARE.
[2020-06-03 19:41] LABS: HEMATOCRIT 29.4 % (42.0-52.0); HEMOGLOBIN 9.6 gm/dL (14.0-18.0)
[2020-06-03 20:00] VITALS: BP 103/68
[2020-06-04] VITALS: BP 106/68
--- NOTE | 2020-06-04 03:59 | NUR ---
PT ALERT ORIENTED TO SELF AND SOMETIMES SITUATION. CONFUSED AND FORGETFUL AT TIMES. TURN Q 2 HRS. 1900 HGB BACK AT 9.9. PT HAD ONE MORE SMALL BLOODY STOOL WITH CLOTS. LEFT LOWER ABD LEAKING FROM PREVIOUS PARACENTESIS SITE. OSTOMY BAG OVER SITE TO COLLECT DRAINAGE. TELEMETRY SHOWS SR. BENADRYL GIVEN HS FOR SLEEP. WCTM
[2020-06-04 04:00] VITALS: BP 100/70
[2020-06-04 04:30] LABS: HEMATOCRIT 25.9 % (42.0-52.0); HEMOGLOBIN 8.7 gm/dL (14.0-18.0); MCH 33.9 pg (26.0-34.0); MCHC 33.5 g/dL (28.0-37.0); MCV 101.1 fL (80.0-100.0); MPV 10.4 fl. (7.2-11.1); RBC 2.56 mil/uL (4.50-6.00); RDW-CV 22.5 % (10.5-14.5); WBC 17.5 thou/uL (4.0-11.0)
[2020-06-04 04:54] LABS: INR 1.6; PROTIME 16.8 Seconds (9.20-11.50)
[2020-06-04 05:06] LABS: ALBUMIN 1.8 g/dL (3.4-5.0); CALCIUM 8.4 mg/dL (8.5-10.1); CREATININE 2.2 mg/dL (0.6-1.3); MAGNESIUM 1.9 mg/dL (1.8-2.4); POTASSIUM 3.7 mmol/L (3.5-5.1); TOTAL BILIRUBIN 8.9 mg/dL (<0.1-1.0); TOTAL PROTEIN 5.2 g/dL (6.4-8.2)
--- NOTE | 2020-06-04 06:52 | NUR ---
PT HAD SM STOOL THIS TIME MORE BROWN. AM HGB 8.7
[2020-06-04 08:30] VITALS: BP 112/86
[2020-06-04 10:18] LABS: HEMATOCRIT 27.3 % (42.0-52.0)
[2020-06-04 16:03] LABS: HEMATOCRIT 27.8 % (42.0-52.0); HEMOGLOBIN 9.1 gm/dL (14.0-18.0)
[2020-06-04 17:37] VITALS: BP 108/72
--- NOTE | 2020-06-04 18:58 | NUR ---
PT. ALERT, CONFUSED, IMPULSIVE, SIDE RAILSC4 UP, Q2 TURNS, VISITED BY EX- AT BEDSIDE, DENIES PAIN, CALL LIGHT AND PERSONAL BELONGINGS PLACED WITHIN REACH. H&h MONITORED CLOSELY, DR. VALLE NOTIFIED. PT. CONTINUES TO HAVE BLOODY STOOLS. PT. IN BED, RESTING WITH EYES OPEN, AT THIS TIME.
[2020-06-04 20:00] VITALS: BP 99/66
[2020-06-05] VITALS (73 sets, daily range): BP systolic 50–186; BP diastolic 21–156
[2020-06-05 01:29] LABS: HEMATOCRIT 20.6 % (42.0-52.0); MCH 34.1 pg (26.0-34.0); MCHC 32.8 g/dL (28.0-37.0); MPV 10.1 fl. (7.2-11.1); RBC 1.98 mil/uL (4.50-6.00)
[2020-06-05 01:37] LABS: HEMOGLOBIN 6.8 gm/dL (14.0-18.0)
[2020-06-05 01:42] LABS: INR 1.8; PROTIME 18.4 Seconds (9.20-11.50)
[2020-06-05 01:45] LABS: ALBUMIN 1.6 g/dL (3.4-5.0); CALCIUM 8.5 mg/dL (8.5-10.1); CREATININE 3.3 mg/dL (0.6-1.3); POTASSIUM 4.4 mmol/L (3.5-5.1); TOTAL BILIRUBIN 9.7 mg/dL (<0.1-1.0); TOTAL PROTEIN 4.7 g/dL (6.4-8.2)
--- NOTE | 2020-06-05 03:47 | NUR ---
PT ALERT ORIENTED TO SELF. TURN Q 2 HRS. AT 0100 BP 83/59. VARIFIED WITH MENDY 80/50. PT HAD TWO BLOODY STOOLS. STAT H&H ORDERED. DR VALLE NOTIFIED AND ORDERED NS BOLUS OF 500ML AND TO TRANSFUSE 1 UNIT PRBCS IF HGB <7. NS BOLUS STARTED. HGB BACK AT 6.8. ONE UNIT PRBCS TRANSFUSING NOW. SBP STILL LESS THAN 100. TELEMETRY SHOWS SR 80S. ANOTHER BLOODY STOOL SINCE LAST H&H.
[2020-06-05 07:16] LABS: HEMATOCRIT 26.2 % (42.0-52.0); HEMOGLOBIN 8.6 gm/dL (14.0-18.0)
--- NOTE | 2020-06-05 11:19 | NUR ---
PT. AOX2, CONFUSED, DENIES PAIN, SR ON MONITOR, PERIPHERAL IVs IN L ARM PATENT, CALL LIGHT AND PERSONAL BELONGINGS PLACED WITHIN REACH. BP IN 70s/40s, TORIROVE NOTIFED, NS STARTED, FLOW OPEN TO GRAVITY, PT TRANSFERED TO ICU. REPORT GIVEN TO AMI. PT. STABLILIZED.
--- NOTE | 2020-06-05 11:23 | NUR ---
PT RECEIVED FROM TELE AT 0910, BP 60s/30s, 2L FLUID BOLUS GIVEN. LEVOPHED STARTED AT 2MCG/MIN. I UNIT OF PRBC INITIATED. PT TO OR AT 1120 FOR EGD.
[2020-06-05 15:14] LABS: HEMATOCRIT 23.1 % (42.0-52.0); HEMOGLOBIN 7.6 gm/dL (14.0-18.0)
[2020-06-05 17:07] LABS: BE -14.8 mmol/L (-2 to +3); PCO2 20.7 mmHg (35.0-45.0); PO2 89.2 mmHg (75.0-100.0)
[2020-06-05 17:15] LABS: pH 7.299 (7.340-7.450)
[2020-06-05 19:14] LABS: ALBUMIN 2.8 g/dL (3.4-5.0); CALCIUM 8.3 mg/dL (8.5-10.1); MAGNESIUM 2.1 mg/dL (1.8-2.4); TOTAL BILIRUBIN 14.4 mg/dL (<0.1-1.0); TOTAL PROTEIN 5.3 g/dL (6.4-8.2)
[2020-06-05 19:15] LABS: POTASSIUM 5.5 mmol/L (3.5-5.1)
--- NOTE | 2020-06-05 19:51 | NUR ---
PT GOT BACK FROM OR POST BANDING OF ESOPHAGEAL VARICES x3, NOT EXTUBATED PT NOT AWAKE ENOUGH TO FOLLOW COMMANDS. EXTUBATED LATER BY RT AT 1445. PROTONIX DRIP AND OCTREOTIDE DRIP STARTED. PT RECEIVED 1 UNIT OF CRYO AND 1 UNIT OF PLATELETS PER ORDER. CENTRAL LINE PLACED BY DR BARTON, RT IJ x3. PLACEMENT CONFIRMED BY CXR. BP MAINTAINED, MAP>60 WITH LEVOPHED TO 20 MCG/MIN. PULIDO'S CATH PLACED, OUTPUT MINIMAL. NEPHRO CONSULT PLACED. KAYKAY UPDATED. ESTRELLA, SISTER CALLED AND SAID SHE DID NOT WANT KAYKAY TO BE MAKING DECISIONS FOR HIM AND SAID YOLI (BROTHER) IS GOING TO BE OVER HERE TOMORROW TO DISCUSS THIS MATTER.
[2020-06-06] VITALS (76 sets, daily range): BP systolic 67–127; BP diastolic 27–74
[2020-06-06 06:02] LABS: MCH 32.4 pg (26.0-34.0); MCHC 33.4 g/dL (28.0-37.0); MPV 9.2 fl. (7.2-11.1); RBC 1.92 mil/uL (4.50-6.00); RDW-CV 22.2 % (10.5-14.5); WBC 24.9 thou/uL (4.0-11.0)
[2020-06-06 06:05] LABS: HEMOGLOBIN 6.2 gm/dL (14.0-18.0); MCV 96.8 fL (80.0-100.0)
[2020-06-06 06:06] LABS: HEMATOCRIT 18.6 % (42.0-52.0)
[2020-06-06 06:11] LABS: ALBUMIN 2.6 g/dL (3.4-5.0); CALCIUM 8.1 mg/dL (8.5-10.1); CREATININE 4.3 mg/dL (0.6-1.3); POTASSIUM 4.9 mmol/L (3.5-5.1); TOTAL BILIRUBIN 13.8 mg/dL (<0.1-1.0); TOTAL PROTEIN 4.7 g/dL (6.4-8.2)
--- NOTE | 2020-06-06 08:02 | CON ---
[address] [address] CONSULTATION Name: SNOWJESSICA L Room: [address] IN M.R.#: [id number] Admission: 05/24/20 Attend Phys: Manjit Lehman MD Discharge: Date of : 59 Report #: [id number] THIS REPORT FOR: //name// cc: CHELA Nath family physician/PCP CHELA - No family physician/PCP ~ DATE OF SERVICE: 05/25/2020 CONSULT HAS BEEN REQUESTED BY: Manjit Lehman MD INDICATION FOR CONSULTATION: Ventilator management. HISTORY OF PRESENT ILLNESS: This is a 64-year-old gentleman. Past medical history is as mentioned below. The patient is an active smoker and does have a history of alcoholic hepatitis and cirrhosis. The patient is noted to be hepatitis C positive as well. The patient was in fact recently admitted to this hospital and has previously been treated for GI bleeding, also did receive prednisone recently for alcoholic hepatitis. The patient has now presented with an acute upper GI bleed with black tarry stools. He also is noted to be encephalopathic at the time of presentation. The patient was endotracheally intubated this morning. He subsequently did have an EGD. With the EGD this morning, the patient subsequently has also had a paracentesis. He at this time is in severe shock. Blood pressure is around 60-70 systolic with max doses of norepinephrine at 30 in addition to vasopressin. The patient so far has been oxygenating adequately. He has been tachypneic and has had a high minute ventilation; however, this appears to be secondary to primarily metabolic acidosis and shock. The patient is on the ventilator and therefore is unable to provide a further history or review of systems. 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 SOCIAL HISTORY: He does have a history of heavy alcohol intake. He also is noted to have an extensive history of smoking, unable to quantify exactly at this time. No known history of illegal drug use. CURRENT MEDICATIONS: List in [employer] reviewed. HOME MEDICATIONS: Also, list in [employer] reviewed. Note that the patient recently received prednisone; also, he is on a proton pump inhibitor at home; he received 3 days of ceftriaxone recently [place] [address] CONSULTATION Name: SNOWJESSICA L Room: [address]#: [id number] Admission: 05/24/20 Attend Phys: Manjit Lehman MD Discharge: Date of : 59 Report #: [id number] FAMILY HISTORY: No pertinent known family history. ALLERGIES: No known drug allergies. PHYSICAL EXAMINATION: VITAL SIGNS: This afternoon, he was on 30 mcg of Levophed in addition to 0.04 of vasopressin, blood pressure 60-70 systolic, through an arterial line; tachycardic with a heart rate of 120 in a sinus tachycardia rhythm; saturating in the mid 90s on 65% FiO2 and 5 of PEEP; afebrile with a temperature of 36.2; he was tachypneic with a respiratory rate in the mid 30s. HEENT: Head is normocephalic and atraumatic. Endotracheal tube is in place. NECK: Does not show raised JVP, asymmetry, mass or lymph nodes. CHEST: Symmetrical expansion on inspection and palpation. On auscultation, breath sounds are bilaterally equal. I do not hear any added sounds. HEART: Regular. There is significant tachycardia. There is no murmur. ABDOMEN: Still is distended. No obvious tenderness. EXTREMITIES: Lower extremities do show edema. There is no calf tenderness. SKIN: Dry and intact. NEUROLOGICAL: There is response to pain. A detailed neurological examination is not possible at this time. IMAGING STUDIES: The patient's chest x-ray from this morning is unremarkable, endotracheal tube is low in the trachea. The second chest x-ray, which is after line placement, but before thoracentesis shows some atelectasis; in case, he vomited and aspirated and some infiltrates can also show this picture; the patient could have had mild increase in pulmonary vascular congestion at that time; he since then has had paracentesis. LABORATORY DATA: The patient's lab work includes significant abnormalities on CBC as well as coagulation studies as well as significant metabolic acidosis in [employer] reviewed. Screen for COVID-19 is negative. He did not have alcohol on board at the time of presentation. ASSESSMENT AND PLAN: 1. Acute respiratory failure. Considering significant hypotension, we will sedate him with Versed and fentanyl. We will follow arterial blood gases. At this time, it appears that from a pulmonary point of view, the patient should be able to tolerate more volume. 2. Acute upper gastrointestinal bleed with hypovolemic shock. I reviewed with Dr. Saxena. Dr. Valentin also recommended cryoprecipitate. Accordingly, packed RBCs, FFPs and cryoprecipitate are ordered. We will also go ahead and give him at least 50 g of albumin to replace colloid removed during paracentesis. If he continues to oxygenate adequately, then I will be inclined to give him more albumin as well. The patient is already on Protonix as well as octreotide [place] [address] CONSULTATION Name: JESSICA ADAMSON Seven Room: [address] ADM IN M.R.#: [id number] Admission: 05/24/20 Attend Phys: Manjit Lehman MD Discharge: Date of : 59 Report #: [id number] infusion. 3. Acute renal failure with metabolic acidosis. The patient's baseline creatinine is noted to be 1.1. Creatinine this afternoon was 2.3. He also had a significant metabolic acidosis. I would be aggressive in fluid resuscitation. Ordered bicarbonate infusion at 150 an hour. The patient is also getting with octreotide 50 an hour. So, this is 200 mL of fluid. Follow labs and arterial blood gases. 4. Possible sepsis/pulmonary infiltrates/rule out spontaneous bacterial peritonitis. Ceftriaxone has shown to be of benefit in patients with severe gastrointestinal bleeding; therefore, I agree with continuing. We will investigate further as to whether there is a possibility that the patient may have aspirated; if so, then we will switch over to Zosyn; otherwise, I will be inclined to increase the dose of ceftriaxone. 5. Hepatic encephalopathy. We will defer management to the GI service. 6. Recent prednisone use. The patient is on 30 of Levophed and on vasopressin, still hypotensive; therefore, we will give stress doses of steroids. 7. History of smoking. We will start nebulized bronchodilators once his heart rate is at a reasonable level. 8. History of alcohol use. 9. History of hepatitis C. 10. Deep vein thrombosis prophylaxis. Recommend sequential compression devices. The patient is critically ill at this time. Total time spent providing critical care to this patient today exceeds 50 minutes. <ELECTRONICALLY SIGNED> By: Fabian Kaye MD 06/06/20 0802 [id number] Kaye MD /nt
[2020-06-06 12:02] LABS: HEMATOCRIT 21.1 % (42.0-52.0); HEMOGLOBIN 7.3 gm/dL (14.0-18.0)
[2020-06-06 12:11] LABS: INR 2.5; PROTIME 25.1 Seconds (9.20-11.50)
--- NOTE | 2020-06-06 13:48 | NUR ---
ICU ROUNDS: Colonoscopy done today. May be starting dialysis today. CM updated [facility] unit regarding Pt's hospitalization, per Officer Chris, Pt needs to bring the letter that Pt's brother brought to the hospital with him along with his hospital dc orders to his next appt on 06/23. CM updated Pt, nurse Mingo in room and heard the conversation. CM placed the letter on the front of Pt's chart.
[2020-06-06 14:43] LABS: MCH 31.7 pg (26.0-34.0); MCHC 34.7 g/dL (28.0-37.0); MPV 9.4 fl. (7.2-11.1); RBC 2.06 mil/uL (4.50-6.00); RDW-CV 18.8 % (10.5-14.5); WBC 21.8 thou/uL (4.0-11.0)
[2020-06-06 14:51] LABS: HEMOGLOBIN 6.5 gm/dL (14.0-18.0); MCV 91.4 fL (80.0-100.0)
[2020-06-06 14:52] LABS: HEMATOCRIT 18.8 % (42.0-52.0)
--- NOTE | 2020-06-06 15:08 | NUR ---
WOUND NURSE: PATIENT'S NURSE REPORTING BREAKDOWN ON BOTTOM. PRESENTS A 3.0 X 3.0 X 0.1 CM RUPTURED BLISTER CONTAINING PINK NONGRANULATING TISSUE IN THE WOUND BED AND SCANT SEROUS DRAINAGE. CLEANSED WITH SOAP AND WATER, RINSED WITH WATER, THEN PATTED DRY. APPLIED SKIN PREP TO PERIWOUND TISSUE. APPLIED AQUACEL AG UNDER FOAM DRESSING TO WOUND. PATIENT IS NOT TEACHEABLE.
--- NOTE | 2020-06-06 18:35 | NUR ---
PT REMAINS CONFUSED AND DROWSY THROUGHOUT THE SHIFT.TONEY RED STOOLS X 3-GI NOTIFIED WITH ORDERS FOR COLONSCOPY.TOTAL OF 3 UNITS OF RBCS, 1 CRYO, AND 2 FFP GIVEN WITH NO COMPLICATIONS.COLONSCOPY COMPLETED WITH COLON VARICES BANDED X7-MINIMAL BEEDING AFTER COLONSCOPY NOTED.EX KAYKAY VISITED AT BEDSIDE.SON SONALI UPDATED BY PHONE.WILL CONTINUE TO MONITOR FOR DURATION OF SHIFT.
[2020-06-06 18:57] LABS: CREATININE 4.1 mg/dL (0.6-1.3)
[2020-06-06 22:01] LABS: MCH 31.4 pg (26.0-34.0); MCHC 34.6 g/dL (28.0-37.0); MCV 90.7 fL (80.0-100.0); MPV 8.7 fl. (7.2-11.1); NUCLEATED RBCS 0 /100WBC; PLATELET COUNT* 89 thou/uL (150-400); RBC 2.13 mil/uL (4.50-6.00); RDW-CV 16.4 % (10.5-14.5); WBC 16.5 thou/uL (4.0-11.0)
[2020-06-06 22:13] LABS: HEMATOCRIT 19.4 % (42.0-52.0); HEMOGLOBIN 6.7 gm/dL (14.0-18.0)
[2020-06-06 22:52] LABS: ABSOLUTE LYMPHOCYTES 2.5 thou/uL (0.8-5.3); ABSOLUTE MONOCYTES 0.7 thou/uL (0.0-1.2); ABSOLUTE NEUTROPHILS 13.4 thou/uL (1.6-8.1); PLATELET ESTIMATE DECREASED
[2020-06-06 22:54] LABS: BURR CELLS Occasional
[2020-06-06 22:56] LABS: POIKILOCYTOSIS 1+
[2020-06-07] VITALS (79 sets, daily range): BP systolic 91–148; BP diastolic 54–87
[2020-06-07 03:25] LABS: HEMATOCRIT 22.2 % (42.0-52.0); HEMOGLOBIN 7.9 gm/dL (14.0-18.0); MCH 31.7 pg (26.0-34.0); MCHC 35.5 g/dL (28.0-37.0); MCV 89.3 fL (80.0-100.0); RBC 2.48 mil/uL (4.50-6.00); RDW-CV 16.2 % (10.5-14.5); WBC 16.3 thou/uL (4.0-11.0)
[2020-06-07 03:36] LABS: PROTIME 20.2 Seconds (9.20-11.50)
[2020-06-07 03:39] LABS: ALBUMIN 3.6 g/dL (3.4-5.0); CALCIUM 8.3 mg/dL (8.5-10.1); CREATININE 4.3 mg/dL (0.6-1.3); MAGNESIUM 1.7 mg/dL (1.8-2.4); POTASSIUM 3.7 mmol/L (3.5-5.1); TOTAL BILIRUBIN 13.6 mg/dL (<0.1-1.0); TOTAL PROTEIN 5.2 g/dL (6.4-8.2)
--- NOTE | 2020-06-07 07:13 | NUR ---
ASSESSMENTS CHARTED. PATIENT EXPERIENCING BOWEL MOVEMENTS NEAR THE END OF SHIFT. 3 BANDS THAT WERE PLACED DURING COLONOSCOPY YESTERDAY WERE NOTED TO BE MIXED IN THE STOOL. CALLED FINDINGS TO DR. BRITO. PROVIDER AWARE, NO ORDERS GIVEN. PATIENT ORIENTED TO SELF AND REPEATEDLY SAYING HE WANTS TO GO HOME. LEVOPHED BEING TITRATED DOWN. 2 UNTIS OF PRBC GIVEN THIS SHIFT. HGB STABLE AT LAST DRAW
--- NOTE | 2020-06-07 14:49 | NUR ---
ICU rounds: No obvious bleeding. Labs look better. Still on Levo, weaning. No dialysis needed as of yet, renal following, temp dialysis cath was not placed.
--- NOTE | 2020-06-07 18:22 | NUR ---
PT REMAINS A/O X 2-3.VSS-ABLE TO WEEN OFF LEVOPHED THROUGHTOUT SHIFT.CENTRAL LINE DRESSING CHANGED.PT STILL HAVING LOOSE BOWEL MOVEMENTS BUT NO BLOOD NOTED.5 OUT OF 7 GI BANDS FOUND IN STOOL BETWEEN NIGHT AND DAY SHIFT STOOLS-GI AWARE.BATH GIVEN.CALL LIGHT AND FALL PRECAUTIONS IN PLACE.WILL CONTINUE TO MONITOR FOR DURATION OF SHIFT.
[2020-06-08] VITALS (24 sets, daily range): BP systolic 93–129; BP diastolic 52–78
[2020-06-08 04:02] LABS: MCH 32.5 pg (26.0-34.0); MCHC 36.1 g/dL (28.0-37.0); MCV 90.3 fL (80.0-100.0); MPV 9.3 fl. (7.2-11.1); RBC 2.11 mil/uL (4.50-6.00); RDW-CV 16.7 % (10.5-14.5); WBC 8.9 thou/uL (4.0-11.0)
[2020-06-08 04:15] LABS: INR 2.5; PROTIME 25.5 Seconds (9.20-11.50)
[2020-06-08 04:24] LABS: ALBUMIN 3.4 g/dL (3.4-5.0); CALCIUM 8.7 mg/dL (8.5-10.1); CREATININE 4.2 mg/dL (0.6-1.3); POTASSIUM 3.2 mmol/L (3.5-5.1); TOTAL BILIRUBIN 13.9 mg/dL (<0.1-1.0); TOTAL PROTEIN 4.8 g/dL (6.4-8.2)
[2020-06-08 04:25] LABS: HEMOGLOBIN 6.9 gm/dL (14.0-18.0)
[2020-06-08 13:07] LABS: HEMATOCRIT 24.2 % (42.0-52.0); HEMOGLOBIN 8.5 gm/dL (14.0-18.0)
--- NOTE | 2020-06-08 15:09 | NUR ---
ICU rounds: Pt was to have a paracentesis today, but INR elevated. Received unit of blood, hbg 8.5
[2020-06-08 17:25] LABS: INR 2.2; PROTIME 22.4 Seconds (9.20-11.50)
--- NOTE | 2020-06-08 19:37 | NUR ---
8 EPISODES OF LOOSE MUCOID SMALL BM THIS SHIFT. FECAL TUBE INSERTED AT THE END OF THE SHIFT. VERY MINIMAL INTAKE, ENCOURAGED DIET. EX IN THE ROOM THE WHOLE DAY. SAT AT THE EDGE OF THE BED WITH PT, ABLE TO HELP HIMSELF WITH TURNS. ULTRASOUND CALLED THEY WON'T DO PARACENTESIS UNLESS INR <2. DR SAENZ NOTIFIED. I UNIT OF FFP TRANSFUSED. PROTONIX AND OCTREOTIDE GTT CONTD.
[2020-06-09] VITALS (26 sets, daily range): BP systolic 108–138; BP diastolic 64–91
[2020-06-09 05:31] LABS: ABSOLUTE LYMPHOCYTES 0.8 thou/uL (0.8-5.3); ABSOLUTE MONOCYTES 0.4 thou/uL (0.0-1.2); ABSOLUTE NEUTROPHILS 6.6 thou/uL (1.6-8.1); BASOPHILS 0.1 %; EOSINOPHILS 0.3 %; HEMATOCRIT 22.5 % (42.0-52.0); HEMOGLOBIN 7.9 gm/dL (14.0-18.0); LYMPHOCYTES 9.7 %; MCH 32.7 pg (26.0-34.0); MCHC 35.1 g/dL (28.0-37.0); MCV 93.1 fL (80.0-100.0); MONOCYTES 5.8 %; MPV 9.2 fl. (7.2-11.1); NUCLEATED RBCS 0 /100WBC; POLYS 84.1 %; RBC 2.42 mil/uL (4.50-6.00); RDW-CV 16.4 % (10.5-14.5); WBC 7.8 thou/uL (4.0-11.0)
[2020-06-09 05:38] LABS: CALCIUM 8.6 mg/dL (8.5-10.1); CREATININE 3.7 mg/dL (0.6-1.3); POTASSIUM 3.1 mmol/L (3.5-5.1)
[2020-06-09 05:41] LABS: INR 2.3; PROTIME 23.7 Seconds (9.20-11.50)
[2020-06-09 05:44] LABS: PLATELET COUNT* 47 thou/uL (150-400)
--- NOTE | 2020-06-09 07:24 | NUR ---
ASSESSMENTS CHARTED. PATIENT REMAINS ON OCTREOTIDE AND PROTONIX GTTS. CENTRAL LINE CONTINUES TO OOZE BLOOD THROUGHOUT THE SHIFT. DRESSING CHANGED 3 TIMES THIS SHIFT. FFP ORDERED FOR INR OF 2.3. VSS. PARACENTESIS PLANNED IF INR DROPS BELOW 2.0
[2020-06-09 09:42] LABS: INR 2.1; PROTIME 21.4 Seconds (9.20-11.50)
--- NOTE | 2020-06-09 11:23 | H ---
[place] [address] HISTORY AND PHYSICAL Name: SNOWJESSICA Seven Room: [address] IN ..#: [id number] Admission: 05/24/20 Attend Phys: Manjit Lehman MD Discharge: Date of : 59 Report #: [id number] THIS REPORT FOR: //name// cc: CHELA Nath family physician/PCP CHELA Nath family physician/PCP ~ CC: CHELA physician/PCP Manjit Lehman DATE OF SERVICE: 05/24/2020 This is a consultation obtained by Dr. Lehman for acute kidney injury. HISTORY OF PRESENT ILLNESS: The patient is a 64-year-old gentleman who was seen in the intensive care unit. The patient has been in the hospital since the of this month. He was here in the hospital earlier in the month too when he was seen for GI bleed. The patient has a history of heavy alcohol intake associated with hepatic cirrhosis with portal hypertension. He does have ascites as well as a variceal bleed diagnosed recently on the previous admission. The patient was readmitted on the with acute upper GI bleed with black tarry stools. The patient was very encephalopathic on admission and had respiratory failure, hence required endotracheal intubation and mechanical ventilation. In this admission, the patient does continue to struggle with ongoing GI bleeds. He has had multiple procedures with variceal banding, one most recently yesterday where variceal banding was again performed x 3. According to the nursing staff, the patient continues to have bright red blood per rectum now. Apparently, the patient had recovered from his initial respiratory failure and encephalopathy and was extubated and taken to the floor; however, he deteriorated further again and had started having more GI bleed and has been brought back to the ICU. The patient was seen in the ICU today. He continues to be on 1 pressor and a bicarbonate drip. He has been transfused regularly since yesterday and continues to be on blood transfusion at this time of my evaluation. The patient's renal function continues to deteriorate. His urine output has slowed down and he has only made 50 mL of urine all night going into this morning. He is awake and arousable. He can tell me his name, but cannot tell me any further information beyond that point. He does not appear to be in distress. He is only on a few liters of oxygen. PAST MEDICAL HISTORY: Significant for: 1. Alcoholic hepatitis with cirrhosis. 2. Portal hypertension with esophageal variceal bleeds. 3. Heavy history of alcohol intake. 4. History of hepatic encephalopathy. 5. History of hepatitis C. 6. Sepsis. 7. [place] [address] HISTORY AND PHYSICAL Name: JESSICA CRONIN Room: [address] IN ..#: [id number] Admission: 05/24/20 Attend Phys: Manjit Lehman MD Discharge: Date of : 59 Report #: [id number] 8. The patient does have a history of strokes in the past with associated left-sided weakness. PERSONAL, SOCIAL AND FAMILY HISTORY: The patient continues to have history of smoking and alcohol. Admission alcohol level this time was less than 10. No history of end-stage renal disease according to admission records. CURRENT MEDICATIONS: 1. Insulin as needed. 2. Sodium bicarbonate infusion. 3. Protonix infusion. 4. Lactulose twice daily. 5. Fentanyl and midazolam as needed. 6. Octreotide. 7. Albumin every 6 hours. 8. Other p.r.n. medications. He was on spironolactone and Lasix, which were stopped 2 days ago. REVIEW OF SYSTEMS: Generally unavailable from the patient, but he is awake and arousable with answering only minimal questions. He does not appear to be short of breath. He is afebrile. As mentioned above, he continues to have melena and bright red blood per rectum intermittently. PHYSICAL EXAMINATION: VITAL SIGNS: He continues to be on a low-dose pressor. Blood pressure 70s-80s systolic. His pulse rate is 85. LUNGS: Diminished. HEENT: Mucous membranes are dry. He is deeply jaundiced. NECK: Veins are flat. He has a right-sided central triple lumen line. ABDOMEN: Distended. EXTREMITIES: No edema. Cold and clammy. I see blood stains in his bedsheet suggestive of ongoing GI bleeds. LABORATORY DATA: His labs were reviewed. This morning, white count is 24.9, hemoglobin is down to 6.2 down from 7.6 and 8.6 yesterday, platelets are 163,000. Metabolic panel this morning; sodium is 141, potassium is 4.9, chloride 109, bicarbonate 17, BUN 86 and creatinine 4.3. Creatinine has steadily risen. Baseline creatinine on admission was 1.4-1.5. It went up to 2.6 on the . It did improve down to 1.2, but now has rapidly risen again over the past 4 days from 1.2 to 4.3 over a span of 5 days. Albumin is 2.6. AST 282, ALT 152. Ammonia level last checked 2 days ago was 20, it was [address] [place] [address] HISTORY AND PHYSICAL Name: JESSICA CRONIN Room: [address] IN [facility]#: [id number] Admission: 05/24/20 Attend Phys: Manjit Lehman MD Discharge: Date of : 59 Report #: [id number] Urinalysis has been done a long time ago and is presently not available. Ultrasound of the kidneys performed yesterday shows no evidence of any obstructive uropathy. Large amount of ascites was noticed. ASSESSMENT: 1. Anuric acute kidney injury. 2. Rapidly deteriorating renal function. 3. History of hepatic cirrhosis with portal gastropathy and portal hypertension. 4. Multiple massive gastrointestinal bleeds, both upper and lower. 5. Multiple recent GI procedures including banding of the varices. 6. Heavy history of alcohol in the past. 7. Heavy history of smoking. 8. Recent admission for sepsis and gastrointestinal bleed. 9. Recent intubation for hepatic encephalopathy, extubated last week. PLAN: 1. The patient is acutely sick. He continues to have ongoing GI bleeds in spite of the banding procedures done yesterday. 2. Acute kidney injury, now anuric secondary to underlying liver disease and massive hemorrhagic shock from blood loss from gastrointestinal bleeds. 3. The patient does appear hypovolemic by exam. We will give him a normal saline bolus and then increase IV fluids as tolerated. 4. We will watch him very closely over the next few hours. If the patient's urine output does not cotton picker, he needs to start dialysis. 5. Overall prognosis for the patient's situation remains very poor. I had a detailed discussion with the patient's son, Jaden Cronin, about the prognosis in this situation. He understands the gravity of the situation and was open to the idea of discussion about comfort care. He will be discussing with his family about the same. I had a detailed discussion with the ICU staff about the same and also discussed the situation with the GI team. The patient continues to be critically sick. I spent 45 minutes in the ICU, reviewing records, examining the patient, coordinating care, discussing with the family and discussing with ICU staff. Thank you for the consultation. We will continue to follow and [place] [address] HISTORY AND PHYSICAL Name: JESSICA CRONIN Room: [address] IN [facility]#: [id number] Admission: 05/24/20 Attend Phys: Manjit Lehman MD Discharge: Date of : 59 Report #: [id number] Please avoid all nephrotoxic medications, ZEINA inhibitors, ARBs, spironolactone, diuretics without discussing with the Nephrology team. <ELECTRONICALLY SIGNED> By: Min Abreu MD 06/09/20 1123 [id number] Abreu MD /nt
[2020-06-09 13:17] LABS: INR 1.8; PROTIME 18.6 Seconds (9.20-11.50)
--- NOTE | 2020-06-09 14:07 | NUR ---
ICU rounds: Pt to have paracentesis today if INR down. Cr coming down. PT to work with Pt.
--- NOTE | 2020-06-09 18:24 | NUR ---
2 UNITS OF FFP TRANSFUSED THIS AM, INR DOWN TO 1.8. PARACENTESIS DONE AT THE BEDSIDE, US GUIDED, TOTAL FLUID REMOVED 24242 MLS. VSS. O2 SUPPORT WITH NC 2L/MIN. INTAKE MINIMAL. D5 WITH KCL CONTD AT 75 MLS/HR. MG REPLACED.
[2020-06-10] VITALS (18 sets, daily range): BP systolic 115–139; BP diastolic 71–89
[2020-06-10 05:57] LABS: CALCIUM 9.1 mg/dL (8.5-10.1); CREATININE 3.4 mg/dL (0.6-1.3); POTASSIUM 3.1 mmol/L (3.5-5.1)
[2020-06-10 05:58] LABS: INR 2.1; PROTIME 21.4 Seconds (9.20-11.50)
--- NOTE | 2020-06-10 07:16 | NUR ---
PATIENT PROGRESSING TOWARD GOALS. PATIENT ATTEMPTING TO COUGH OUT SPUTUM BUT IS NOT STRONG ENOUGH TO EXPECTORATE WITHOUT ASSISTANCE. PATIENT USING SUCTION CATHETER WHEN COUGHING. ADJUSTS SELF IN BED. KEEPS ASKING WHEN HE CAN GO HOME. NO SIGNIFICANT EVENTS OVERNIGHT.
[2020-06-10 07:36] LABS: HEMATOCRIT 22.1 % (42.0-52.0); HEMOGLOBIN 7.6 gm/dL (14.0-18.0); MCHC 34.5 g/dL (28.0-37.0); MCV 95.4 fL (80.0-100.0); RBC 2.31 mil/uL (4.50-6.00); WBC 8.5 thou/uL (4.0-11.0)
--- NOTE | 2020-06-10 14:54 | NUR ---
ICU rounds: Possible downgrade tomorrow. SOB. HBG 7. Out of bed. Paracentesis yesterday, removed 10+L of fluid.
--- NOTE | 2020-06-10 15:00 | NUR ---
PT TO CHAIR THIS AM WITH MAX SUPPORT x2. VERY WEAK AND GETS SHORT OF BREATH, TACHYPNEIC WITH ACTIVITY, O2 SUPPORT INCREASED TO 6L/MIN VIA NC. ENCOURAGED ORAL INTAKE. SAT IN A CHAIR FOR ALMOST 6 HOURS.
[2020-06-10 15:25] LABS: CALCIUM 9.2 mg/dL (8.5-10.1); CREATININE 3.3 mg/dL (0.6-1.3); POTASSIUM 3.4 mmol/L (3.5-5.1)
--- NOTE | 2020-06-10 19:41 | NUR ---
PT GETTING TACHYPNEIC AND CRACKLES HEARD, DESATTING TO LOW 80s. IV FLUIDS DC'D AND DR CLARK NOTIFIED. RECEIVED ORDERS FOR LASIX AND CXR. 40 MG LASIX GIVEN. PT SATTING LOW 90s WITH HFNC AT 15 L/MIN.
--- NOTE | 2020-06-10 20:46 | NUR ---
RESULTS OF CXR RECEIVED, PHYSICIAN NOIFIED. ORDERS RECEIVED. BIPAP, NOTIFY NEPHROLOGY OF POSSIBLE NEED FOR DIALYSIS
[2020-06-11] VITALS (24 sets, daily range): BP systolic 110–141; BP diastolic 63–88
--- NOTE | 2020-06-11 01:14 | NUR ---
RECEIVED REPORT AND ASSUMED CARE AT 1900. VSS. DENIES COMPLAINTS OF PAIN. ASSESSMENT COMPLETED CHARTED. DISCUSSED PLAN OF CARE. PT VERBALIZED UNDERSTANDING. PT RESUTS FROM CXR RECEIVED. PHYSCIAN NOTIFIED AND ORDES RECEIVED. BED LOCKED IN LOWEST POSITION, CALL LIGHT WITHIN REACH, BED ALARM ON. PT WEARING BIPAP. TOLERATING WELL AFTER MEDICATION FOR ANXIETY PER ORDERS.
[2020-06-11 04:44] LABS: BE 0 mmol/L (-2 to +3); PCO2 36.1 mmHg (35.0-45.0); PO2 79.8 mmHg (75.0-100.0)
[2020-06-11 07:32] LABS: INR 2.5; PROTIME 25.1 Seconds (9.20-11.50)
[2020-06-11 07:35] LABS: CALCIUM 9.4 mg/dL (8.5-10.1); POTASSIUM 3.4 mmol/L (3.5-5.1)
--- NOTE | 2020-06-11 17:35 | NUR ---
PT REMAINS A/OX2-3 AND FORGETFUL.ON 6L NC/BIPAP WHILE SLEEPING.TUBE SLITTING AND SHIPPING SUPERVISOR STOCKINGS (SIZE E MEDIUM) APPLIED BILATERAL LOWER EXTREMITY.DRESSING CHANGED ON SACRUM.BATH GIVEN.WORKED WITH SPEECH THERAPY-RECOMMENDED MECH CHOPPED/NECTAR THICK.SISTER ESTRELLA VISITED AT BEDSIDE.CALL LIGHT AND FALL PRECAUTIONS IN PLACE.WILL CONTINUE TO MONITOR FOR DURATION OF SHIFT.
[2020-06-12] VITALS (18 sets, daily range): BP systolic 107–142; BP diastolic 63–95
[2020-06-12 06:42] LABS: ABSOLUTE LYMPHOCYTES 1.2 thou/uL (0.8-5.3); ABSOLUTE MONOCYTES 0.6 thou/uL (0.0-1.2); ABSOLUTE NEUTROPHILS 10.4 thou/uL (1.6-8.1); BASOPHILS 0.3 %; EOSINOPHILS 0.1 %; HEMATOCRIT 25.1 % (42.0-52.0); HEMOGLOBIN 8.5 gm/dL (14.0-18.0); LYMPHOCYTES 9.6 %; MCH 32.3 pg (26.0-34.0); MCHC 33.8 g/dL (28.0-37.0); MCV 95.6 fL (80.0-100.0); MPV 9.8 fl. (7.2-11.1); NUCLEATED RBCS 0 /100WBC; RBC 2.63 mil/uL (4.50-6.00); RDW-CV 21.2 % (10.5-14.5); WBC 12.2 thou/uL (4.0-11.0)
[2020-06-12 06:44] LABS: PLATELET COUNT* 38 thou/uL (150-400)
[2020-06-12 06:50] LABS: INR 2.7; PROTIME 26.6 Seconds (9.20-11.50)
[2020-06-12 07:50] LABS: SODIUM ND mmol/L (136-145)
[2020-06-12 07:51] LABS: POTASSIUM ND mmol/L (3.5-5.1)
[2020-06-12 07:53] LABS: CHLORIDE ND mmol/L (98-107)
[2020-06-12 07:54] LABS: ANION GAP ND mmol/L (7-16); CO2 ND mmol/L (21-32)
[2020-06-12 07:55] LABS: BUN ND mg/dL (7-18); CREATININE ND mg/dL (0.6-1.3)
[2020-06-12 07:56] LABS: GLUCOSE ND mg/dL (70-99); SGOT ND U/L (15-37)
[2020-06-12 07:57] LABS: TOTAL BILIRUBIN ND mg/dL (<0.1-1.0)
[2020-06-12 07:58] LABS: CALCIUM ND mg/dL (8.5-10.1)
[2020-06-12 07:59] LABS: ALKALINE PHOSPHATASE ND U/L (46-116); MAGNESIUM ND mg/dL (1.8-2.4)
[2020-06-12 08:00] LABS: SGPT ND U/L (30-65); TOTAL PROTEIN ND g/dL (6.4-8.2)
[2020-06-12 08:01] LABS: ALBUMIN ND g/dL (3.4-5.0)
--- NOTE | 2020-06-12 08:02 | NUR ---
INTITAL ASSESMENT COMPLETED AT 1999. PT ALERT AND ORUENTED X4, PT IS ON COMPLETE BEDREST DUE TO FLEXASEAL AND NEED TO PREVENT SKIN BREAKDDOWN. PT IS CAPLEABLE OF ALL ADLS, BEDREST ONLY NEEDED TO MAINTAIN SKIN INTEGRITY. 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 DR STRICKLAND CALLED AT 3AM TO REQUEST TELE STATUS.
[2020-06-12 08:17] LABS: ALBUMIN 3.7 g/dL (3.4-5.0); CALCIUM 9.6 mg/dL (8.5-10.1); CREATININE 2.6 mg/dL (0.6-1.3); MAGNESIUM 1.6 mg/dL (1.8-2.4); TOTAL BILIRUBIN 14.5 mg/dL (<0.1-1.0); TOTAL PROTEIN 5.4 g/dL (6.4-8.2)
[2020-06-12 08:38] LABS: POTASSIUM 2.6 mmol/L (3.5-5.1)
[2020-06-12 14:14] LABS: CALCIUM 9.7 mg/dL (8.5-10.1); CREATININE 2.8 mg/dL (0.6-1.3); MAGNESIUM 1.7 mg/dL (1.8-2.4); POTASSIUM 3.3 mmol/L (3.5-5.1)
[2020-06-12 15:52] LABS: CALCIUM 9.7 mg/dL (8.5-10.1); CREATININE 2.7 mg/dL (0.6-1.3); POTASSIUM 3.2 mmol/L (3.5-5.1)
--- NOTE | 2020-06-12 18:55 | NUR ---
RECEIVED REPORT. ASSUMED CARE OF PT AROUND 729. CRITICAL CARE ASSESSMENT CHARTED. CARDIAC MONITORING IN PLACE. MEDS PER EMAR. POTASSIUM AND MAGNESIUM REPLACED. FECAL TUBE AND PULIDO IN PLACE. SCANT RED BLEEDING AROUND FECAL TUBE THIS EVENING, DR NOTIFIED. EX- IN TO SEE PT. PT TURNED Q2HRS. POOR PO INTAKE. PT LUNGS WORSE THIS EVENING, DR NOTIFED. NOT PROGRESSING TOWARD GOALS. FALL PRECAUTIONS IN PLACE. REPOSITIONED Q2HRS. CALL LIGHTS IS WITHIN REACH. HOURLY ROUNDING PERFORMED.
--- NOTE | 2020-06-12 23:05 | NUR ---
PATIENT PLACED ON BIPAP AT 2200. PATIENT IS REFUSING TO LEAVE OXYGEN ON, DESATS TO MID 80'S ON ROOM AIR. ATTEMPTING TO PULL OFF BIPAP. PATIENT REPEATEDLY STATING HE WANTS TO LEAVE AND GO HOME.
[2020-06-13] VITALS (21 sets, daily range): BP systolic 107–130; BP diastolic 59–81
[2020-06-13 05:05] LABS: INR 2.7; PROTIME 27.1 Seconds (9.20-11.50)
[2020-06-13 05:34] LABS: ALBUMIN 3.3 g/dL (3.4-5.0); CALCIUM 9.1 mg/dL (8.5-10.1); CREATININE 2.5 mg/dL (0.6-1.3); MAGNESIUM 1.8 mg/dL (1.8-2.4); TOTAL BILIRUBIN 15.2 mg/dL (<0.1-1.0); TOTAL PROTEIN 5.4 g/dL (6.4-8.2)
[2020-06-13 05:51] LABS: POTASSIUM 2.6 mmol/L (3.5-5.1)
[2020-06-13 06:45] LABS: HEMATOCRIT 24.5 % (42.0-52.0); HEMOGLOBIN 8.4 gm/dL (14.0-18.0); MCH 32.6 pg (26.0-34.0); MCHC 34.4 g/dL (28.0-37.0); MCV 94.7 fL (80.0-100.0); MPV 9.5 fl. (7.2-11.1); RBC 2.58 mil/uL (4.50-6.00); RDW-CV 21.1 % (10.5-14.5); WBC 13.3 thou/uL (4.0-11.0)
--- NOTE | 2020-06-13 07:04 | NUR ---
ASSESSMENTS CHARTED. POTASSIUM AND PLATELETS CRITICALLY LOW THIS AM. CALLED RESULTS TO NEPHROLOGY. NEW FLUID ORDERS OBTAINED. REPLACING ELECTROLYTES PER PROTOCOL. PLAN FOR PARACENTESIS THIS AM, INR GREATER THAN 2.0. PAGED TO HOPSITALIST FOR ORDERS BEFORE BEING TAPPED THIS AM. NO ORDERS RECIEVED. PATIENT NEARLY ASPIRATED WHILE DRINKING NECTAR THICK LIQUIDS THIS SHIFT TWICE. LUNGS SOUNDING MORE COARSE OVER THE SHIFT. PATIENT REQUIRING O2 SUPPORT TO KEEP SATURATION ABOVE 90%.
[2020-06-13 12:27] LABS: HEMATOCRIT 24.9 % (42.0-52.0); HEMOGLOBIN 8.3 gm/dL (14.0-18.0); MCHC 33.3 g/dL (28.0-37.0); MCV 96.2 fL (80.0-100.0); MPV 8.8 fl. (7.2-11.1); RBC 2.59 mil/uL (4.50-6.00); RDW-CV 22.4 % (10.5-14.5); WBC 14.3 thou/uL (4.0-11.0)
[2020-06-13 12:35] LABS: INR 2.3; PROTIME 23.4 Seconds (9.20-11.50)
--- NOTE | 2020-06-13 19:04 | NUR ---
PT A/O X 2-3, VSS, REMAINS ON 6L O2 NC.RECEIVED 1 UNIT OF PLT.RIGHT PARACENTESIS COMPLETED WITH 5800ML REMOVED.PT WORKED WITH SPEECH THERAPY AND RECOMMENDS MECHANICAL CHOPPED WITH HONEY THICK LIQUIDS.ST ALSO OKAYED FOR LACTULOSE TO BE GIVEN IN SMALL SIPS.POTASSIUM REPLACED.FECAL TUBE REMOVED THIS AM WITH BLOODY STOOLS NOTED-GI NOTIFIED WITH ORDERS TO MONITOR.PT DOWNGRADED TO TELE STATUS-REPORT CALLED TO BRANT JASMINE. ALL PERSONAL BELONGINGS PACKED AND TAKEN WITH PT.PT TRANSFERRED TO ROOM 221.FAMILY UPDATED ON CONDITION AND ROOM CHANGE.
[2020-06-14] VITALS (7 sets, daily range): BP systolic 84–147; BP diastolic 48–72
[2020-06-14 02:49] LABS: ABSOLUTE BASOPHILS 0.1 thou/uL (0.0-0.2); ABSOLUTE LYMPHOCYTES 2.1 thou/uL (0.8-5.3); ABSOLUTE MONOCYTES 0.8 thou/uL (0.0-1.2); ABSOLUTE NEUTROPHILS 11.5 thou/uL (1.6-8.1); BASOPHILS 0.5 %; EOSINOPHILS 0.3 %; HEMATOCRIT 23.3 % (42.0-52.0); HEMOGLOBIN 7.8 gm/dL (14.0-18.0); LYMPHOCYTES 14.3 %; MCHC 33.4 g/dL (28.0-37.0); MONOCYTES 5.7 %; MPV 9.6 fl. (7.2-11.1); NUCLEATED RBCS 0 /100WBC; PLATELET COUNT* 57 thou/uL (150-400); POLYS 79.2 %; RBC 2.43 mil/uL (4.50-6.00); RDW-CV 22.5 % (10.5-14.5); WBC 14.5 thou/uL (4.0-11.0)
[2020-06-14 02:54] LABS: INR 2.5; PROTIME 25.2 Seconds (9.20-11.50)
[2020-06-14 03:01] LABS: CALCIUM 8.8 mg/dL (8.5-10.1); CREATININE 2.1 mg/dL (0.6-1.3); POTASSIUM 3.3 mmol/L (3.5-5.1); TOTAL PROTEIN 5.1 g/dL (6.4-8.2)
--- NOTE | 2020-06-14 04:08 | NUR ---
ASSUMED CARE OFPT AFTER REPORT AT 1930. PT A&OX1-2. CONFUSED. AGITATED AT THE START OF THE SHIFT. TRIED TO REMOVE LOG CUTTER, PULIDO & CENTRAL LINE. WANTS TO GO HOME. REORIENTATION DONE VSS. PHYSICAL ASSESSMENT COMPLETED AND CHARTED. PT ON O2 HFNC 6L/BIPAP AT HS. PT WITH PULIDO TO DEPENDENT DRAIN. PT WITH EPISODES OF HEMATOCHEZIA-APPROX [address] MLS. FALL PRECAUTIONS IN PLACE. CALL LIGHT WITHIN REACH.
[2020-06-14 06:54] LABS: PLATELET ESTIMATE DECREASED
[2020-06-14 06:55] LABS: ANISOCYTOSIS 1+; BURR CELLS 1+; HYPOCHROMASIA 1+; OVALOCYTES 1+; POIKILOCYTOSIS 1+
--- NOTE | 2020-06-14 09:00 | NUR ---
PT LETHARGIC,HYPOTENSIVE.LARGE AMT OF LIQUID BRIGHT RED STOOL WITH BLOOD CLOTS. DR STRICKLAND NOTIFIED.
[2020-06-14 10:51] LABS: HEMATOCRIT 21.5 % (42.0-52.0); HEMOGLOBIN 7.2 gm/dL (14.0-18.0); MCH 32.2 pg (26.0-34.0); MCHC 33.5 g/dL (28.0-37.0); MCV 96.3 fL (80.0-100.0); MPV 10.1 fl. (7.2-11.1); RBC 2.23 mil/uL (4.50-6.00); RDW-CV 22.6 % (10.5-14.5); WBC 11.7 thou/uL (4.0-11.0)
--- NOTE | 2020-06-14 11:00 | NUR ---
SPOKE TO PT'S SO KAYKAY RE PT STATUS. PT IS CURRENTLY HEMMORRHAGING FROM RECTUM,LETHARGIC AND HYPOTENSION. ENCOURAGED HER TO SPEAK TO PT'S SON RE A PLAN FOR PTS FURTHER CARE AND LIVER FAILURE. SHE STATES SHE SPOKE TO DR STRICKLAND YESTERDAY AND WOULD BE AGREEABLE TO GET MORE INFORMATION ON HOSPICE.SPOKE TO [facility] AND INFORMATIONAL VISIT ARRANGED FOR 1500. ATTEMPT TO CALL DIEUDONNE LYON SEVERAL TIMES WITH NO ANSWER
--- NOTE | 2020-06-14 11:40 | NUR ---
CM INFORMED BY THE RN IN-CHARGE OF THE PT OF DISCUSSION WITH PT'S EX- ABOUT PLAN OF CARE. PT'S EX- INFORMED RN OF PT'S WISHES. RN DISCUSSED PLAN OF CARE WITH PT AND HE REQUEST NO STOP TREATMENT AND INITIATE HOSPICE FOR INFO AND EVAL VISIT. PER PT AND EX- REQUEST RN NOTIFIED [facility]. CM FAXED REQUESTED INFO INCLUDING CLINICALS AND HOSPICE EVAL AND TREAT ORDER TO [facility]. [facility] RN TO COME TO THE HOSPITAL AND MEET WITH PT AND EX- KAYKAY. RN ATTEMPTED TO CONTACT PT'S SON. NO ANSWER. CM WILL REMAIN AVAILABLE TO ASSIST AND FOLLOW NEEDED. [facility] PHONE: [phone] FAX: [phone]
--- NOTE | 2020-06-14 18:36 | NUR ---
PT RESTING IN BED THROUGHOUT SHIFT. REPOSITIONED FREQUENTLY RESTLESS BUT LETHARGIC, MULTIPLE BLOODY STOOLS TODAY. PT REFUSES TO LEAVE O2 ON. PT GIVEN SMALL BITES OF FOOD FOR COMFORT ONLY BY SO. SO AT BS AND SPOKE WITH HOSPICE TODAY. ORDERS FOR COMFORT CARE INITIATED.
--- NOTE | 2020-06-15 07:10 | NUR ---
ASSUMED CARE OF PT AFTER REPORT AT 1930. PT LETHARGIC, AROUSABLE TO STIMULI-OPENS EYES WHEN BEING TURNED. PT ON COMFORT CARE. MEDS GIVEN PER SEP. PT WITH EPISODES OF HEMATOCHEZIA OVER NIGHT. FALL PRECAUTIONS IN PLACE.
--- NOTE | 2020-06-15 08:42 | NUR ---
WOUND NURSE: PLANNED TO SEE PATIENT REGARDING 2 WOUNDS, BUT PATIENT WITH COPIOUS AMOUNT OF TONEY BLOOD WITH CLOTS RECTALLY. WOUND ASSESSMENT AND PICTURES DEFERRED A RESULT. PATIENT IS ON PALLIATIVE CARE.
--- NOTE | 2020-06-15 20:31 | NUR ---
ASSUMED CARE OF PATIENT THIS AM AT 0730. PATIENT NONRESPONSIVE. TELE SHOWS ST. PATIENT'S BP LOW AT 63/39. CONVERSED WITH PATIENT'S X OVER THE PHONE. INFORMED HER THAT SHE SHOULD MAKE ARRAGEMENTS TO SEE THE PATIENT OSMAR. PATIENT WAS INCONTINENT OF A LARGE RED LIQUID STOOL THIS AM. SON IN LATER IN THE AM. DISCUSSED POSSIBLE HOSPICE WITH SON AND X . PATIENT MEDICATED X 1 FOR AGONAL BREATHING PER HOSPICE REQUEST. PATIENT AT 1142 THIS AM. PATIENT'S SON RETURNED TO THE HOSPITAL AND HIS BELONGINGS WERE GIVEN TO HIM. PATIENT WAS COLLECTED THIS EVENING AT 1815.
== END 2020-06-15 19:00 | DRG 871 ==
LOC: M.ERS 17:24 → M.TBA-ER 18:24 → M.ICU 18:24 → M.2W 05-30 14:24 → M.ICU 06-05 09:04 → M.2W 06-13 19:01
PROVIDERS: Family Medicine; Internal Medicine; Internal Medicine Critical Care Medicine; Internal Medicine Gastroenterology; Internal Medicine Nephrology; Nurse Practitioner Adult Health; ADMIT Internal Medicine; ATTEND Internal Medicine
PROC: 0D558ZZ Destruction of Esophagus, Via Natural or Artificial Opening Endoscopic (ICD-10-PCS; principal; 2020-05-25)
PROC: 30233M1 Transfusion of Nonautologous Plasma Cryoprecipitate into Peripheral Vein, Percutaneous Approach (ICD-10-PCS; principal; 2020-05-25)
PROC: 30233N1 Transfusion of Nonautologous Red Blood Cells into Peripheral Vein, Percutaneous Approach (ICD-10-PCS; principal; 2020-05-25)
PROC: B548ZZA Ultrasonography of Superior Vena Cava, Guidance (ICD-10-PCS; principal; 2020-05-25)
PROC: 0BH17EZ Insertion of Endotracheal Airway into Trachea, Via Natural or Artificial Opening (ICD-10-PCS; principal; 2020-05-25)
PROC: 30233K1 Transfusion of Nonautologous Frozen Plasma into Peripheral Vein, Percutaneous Approach (ICD-10-PCS; principal; 2020-05-25)
PROC: 30233R1 Transfusion of Nonautologous Platelets into Peripheral Vein, Percutaneous Approach (ICD-10-PCS; principal; 2020-05-25)
PROC: 0W9G3ZZ Drainage of Peritoneal Cavity, Percutaneous Approach (ICD-10-PCS; principal; 2020-05-25)
PROC: 02HV33Z Insertion of Infusion Device into Superior Vena Cava, Percutaneous Approach (ICD-10-PCS; principal; 2020-05-25)
PROC: 5A1945Z Respiratory Ventilation, 24-96 Consecutive Hours (ICD-10-PCS; principal; 2020-05-25)
PROC: 0DJ08ZZ Inspection of Upper Intestinal Tract, Via Natural or Artificial Opening Endoscopic (ICD-10-PCS; 2020-05-26)
PROC: 06L38CZ Occlusion of Esophageal Vein with Extraluminal Device, Via Natural or Artificial Opening Endoscopic (ICD-10-PCS; 2020-06-05)
PROC: 02HV33Z Insertion of Infusion Device into Superior Vena Cava, Percutaneous Approach (ICD-10-PCS; 2020-06-05)
PROC: 0W9G3ZZ Drainage of Peritoneal Cavity, Percutaneous Approach (ICD-10-PCS; 2020-06-08)
PROC: 5A09357 Assistance with Respiratory Ventilation, Less than 24 Consecutive Hours, Continuous Positive Airway Pressure (ICD-10-PCS; 2020-06-11)
PROC: 5A0935A Assistance with Respiratory Ventilation, Less than 24 Consecutive Hours, High Flow/Velocity Cannula (ICD-10-PCS; 2020-06-11)
PROC: 5A0935A Assistance with Respiratory Ventilation, Less than 24 Consecutive Hours, High Flow/Velocity Cannula (ICD-10-PCS; 2020-06-12)
PROC: 5A0935A Assistance with Respiratory Ventilation, Less than 24 Consecutive Hours, High Flow/Velocity Cannula (ICD-10-PCS; 2020-06-13)
PROC: 5A09357 Assistance with Respiratory Ventilation, Less than 24 Consecutive Hours, Continuous Positive Airway Pressure (ICD-10-PCS; 2020-06-13)
PROC: 5A09357 Assistance with Respiratory Ventilation, Less than 24 Consecutive Hours, Continuous Positive Airway Pressure (ICD-10-PCS; 2020-06-14)
PROC: 0W9G3ZZ Drainage of Peritoneal Cavity, Percutaneous Approach (ICD-10-PCS; 2020-06-14)
PROC: 5A0935A Assistance with Respiratory Ventilation, Less than 24 Consecutive Hours, High Flow/Velocity Cannula (ICD-10-PCS; 2020-06-14)
DX: A41.9 Sepsis, unspecified organism (principal); N17.0 Acute kidney failure with tubular necrosis; E43 Unspecified severe protein-calorie malnutrition; J96.00 Acute respiratory failure, unspecified whether with hypoxia or hypercapnia; I85.01 Esophageal varices with bleeding; K22.11 Ulcer of esophagus with bleeding; K76.6 Portal hypertension; D62 Acute posthemorrhagic anemia; B17.10 Acute hepatitis C without hepatic coma; E87.0 Hyperosmolality and hypernatremia; I69.354 Hemiplegia and hemiparesis following cerebral infarction affecting left non-dominant side; R65.20 Severe sepsis without septic shock; K72.90 Hepatic failure, unspecified without coma; K70.31 Alcoholic cirrhosis of liver with ascites; K70.11 Alcoholic hepatitis with ascites; R57.1 Hypovolemic shock; K31.89 Other diseases of stomach and duodenum; F17.210 Nicotine dependence, cigarettes, uncomplicated; F10.20 Alcohol dependence, uncomplicated; K44.9 Diaphragmatic hernia without obstruction or gangrene; Z66 Do not resuscitate; Z51.5 Encounter for palliative care; R57.8 Other shock; R13.10 Dysphagia, unspecified; D69.6 Thrombocytopenia, unspecified; Z20.828 Contact with and (suspected) exposure to other viral communicable diseases; Z79.899 Other long term (current) drug therapy